=== PATIENT | female | born 1955 | race Caucasian/White ===

== ENCOUNTER 2016-08-21 19:51 | Inpatient (IN) | payer OTHER ==
[2016-08-21] MEDS ORDERED: Sodium Chloride 0.9% 1,000 ML IV ONE (20:31)
[2016-08-21] MEDS ORDERED: Sodium Chloride 0.9% 1,000 ML ONE (20:54)
[2016-08-21 20:55] LABS: BASO % 0.2 % (0.0-2.0); EOS % 0.3 % (0.0-4.0); HEMATOCRIT 37.8 % (34.0-47.0); LYMPH # 3.1 K/uL (1.0-4.3); LYMPH % 24.2 % (20.0-40.0); MEAN CELL VOLUME 92.7 fL (81.0-99.0); MEAN CORPUSCULAR HEMOGLOBIN 31.2 pg (27.0-31.0); MEAN CORPUSCULAR HGB CONC 33.6 g/dL (33.0-37.0); MEAN PLATELET VOLUME 7.8 fL (7.2-11.7); MONO # 1.3 K/uL (0.0-0.8); MONO % 10.2 % (0.0-10.0); RED CELL DISTRIBUTION WIDTH 13.1 % (11.5-14.5); WHITE BLOOD COUNT 12.8 K/uL (4.8-10.8)
[2016-08-21 21:04] LABS: INR 1.1
[2016-08-21 21:07] LABS: CHLORIDE 95 mmol/L (98-107); SODIUM 138 mmol/L (132-148)
[2016-08-21 21:08] LABS: POTASSIUM 4.1 mmol/L (3.6-5.2)
[2016-08-21 21:10] LABS: ALB/GLOB RATIO 1.2 (1.0-2.1); ALKALINE PHOSPHATASE 56 U/L (38-126); AST/SGOT 25 U/L (14-36); BILIRUBIN,TOTAL 0.5 mg/dL (0.2-1.3); BLOOD UREA NITROGEN 11 mg/dL (7-17); CARBON DIOXIDE 27 mmol/L (22-30); GFR AFRICAN-AMERICAN > 60; GLUCOSE,RANDOM 97 mg/dL (65-105); PHOSPHOROUS 4.3 mg/dL (2.5-4.5); TOTAL PROTEIN 8.3 g/dL (6.3-8.3)
[2016-08-21 21:11] LABS: ALT/SGPT 16 U/L (9-52); CALCIUM 8.8 mg/dl (8.6-10.4); MAGNESIUM 1.7 mg/dL (1.6-2.3)
[2016-08-21 21:11] LABS: VENOUS BLOOD GAS BASE EXCESS 3.9 mmol/L (0.0-2.0); VENOUS BLOOD GAS PCO2 42 mmHg (40-60); VENOUS BLOOD PH 7.44 (7.32-7.43)
[2016-08-21 21:13] LABS: URINE BACTERIA FEW (<OCC); URINE BILIRUBIN NEGATIVE (NEGATIVE); URINE BLOOD NEGATIVE (NEGATIVE); URINE COLOR Yellow (YELLOW); URINE GLUCOSE (UA) NORMAL (Normal); URINE KETONE NEGATIVE (NEGATIVE); URINE LEUKOCYTE ESTERASE TRACE Leu/uL (Negative); URINE PROTEIN NEGATIVE (NEGATIVE); URINE UROBILINOGEN NORMAL mg/dL (0.2-1.0); WBC URINE 10 /hpf (0-5)
[2016-08-21] MEDS ORDERED: Iohexol 240 (50 ml) PO STA (21:16)
[2016-08-21] MEDS ORDERED: Iodixanol 320 MG/ML 100 ML BOTTLE IV ONE (22:12)
[2016-08-21] MEDS ORDERED: Iohexol 240 (50 ml) ONE (22:21)
--- NOTE | 2016-08-22 00:08 | CT ---
EXAM: CT Abdomen and Pelvis With Intravenous Contrast CLINICAL HISTORY: 61 years old, female; Pain; Abdominal pain; Flank; Left lower quadrant (llq); Additional info: Lower abdominal pain, fever TECHNIQUE: Axial computed tomography images of the abdomen and pelvis with intravenous contrast. This CT exam was performed using one or more of the following dose reduction techniques: automated exposure control, adjustment of the mA and/or kV according to patient size, and/or use of iterative reconstruction technique. Coronal and sagittal reformatted images were created and reviewed. CONTRAST: 100 mL of visipaque 320 administered intravenously. COMPARISON: No relevant prior studies available. FINDINGS: Lower thorax: There is minimal bibasilar atelectasis. ABDOMEN: Liver: There are no focal liver lesions present. Gallbladder and bile ducts: There has been a cholecystectomy. No ductal dilation. Pancreas: The pancreas is normal. No ductal dilation. Spleen: The spleen is normal. Adrenals: The adrenal glands are normal. Kidneys and ureters: The kidneys are normal. No hydronephrosis. Stomach and bowel: At the sigmoid colon near series 3, images 144-148, there is an area of wall thickening with a question of slight pericolonic stranding. This could represent a mild acute diverticulitis. Underlying abnormality is not excluded. No evidence for perforation or abscess. Stomach is decompressed. Colonic constipation is present. There is no evidence of intestinal obstruction. Appendix: A normal appendix is identified. PELVIS: Bladder: Bladder is decompressed. Reproductive: The uterus is normal. ABDOMEN and PELVIS: Intraperitoneal space: There is small to moderate pelvic fluid. This is nonspecific. There is no free intraperitoneal air. Bones/joints: There are mild degenerative changes present. There is mild diffuse osteopenia. No acute fracture. No dislocation. Soft tissues: Unremarkable. Vasculature: The aorta demonstrates mild atherosclerotic calcification. No abdominal aortic aneurysm. Lymph nodes: There is no evidence of lymphadenopathy. IMPRESSION: 1. There is small to moderate pelvic fluid. This is nonspecific. 2. At the sigmoid colon near series 3, images 144-148, there is an area of wall thickening with a question of slight pericolonic stranding. This could represent a mild acute diverticulitis. Underlying abnormality is not excluded. No evidence for perforation or abscess.
--- NOTE | 2016-08-22 00:19 | C.PDOC ---
Time Seen by Provider: 08/21/16 20:07 Chief Complaint (Nursing): Abdominal Pain History Per: Patient Onset/Duration Of Symptoms: Days (few) Current Symptoms Are (Timing): Still Present Severity: Moderate Location Of Pain/Discomfort: LLQ, Suprapubic Associated Symptoms: Fever, Chills Exacerbating Factors: None Alleviating Factors: None Additional History Per: Prior Records Past Medical History Vital Signs: Last Vital Signs Temp 102.2 F H 08/21/16 19:55 Pulse 79 08/21/16 22:15 Resp 18 08/21/16 22:15 BP 107/56 L 08/21/16 22:15 Pulse Ox 95 08/21/16 22:15 - Medical History PMH: Asthma, Gall Bladder Disease, HTN, Hyperlipidemia Surgical History: Cholecystectomy Family History: States: Unknown Family Hx - Social History Hx Alcohol Use: No Hx Substance Use: No - Immunization History Hx Tetanus Toxoid Vaccination: No Hx Influenza Vaccination: Yes Hx Pneumococcal Vaccination: No Review Of Systems Except As Marked, All Systems Reviewed And Found Negative. Constitutional: Positive for: Fever, Malaise Cardiovascular: Negative for: Chest Pain Respiratory: Negative for: Cough, Shortness of Breath Gastrointestinal: Positive for: Abdominal Pain. Negative for: Vomiting, Diarrhea Genitourinary: Negative for: Dysuria Musculoskeletal: Negative for: Neck Pain, Back Pain Skin: Negative for: Rash Neurological: Negative for: Weakness, Numbness, Seizures, Altered Mental Status Physical Exam - Physical Exam Appears: Non-toxic, No Acute Distress Skin: Normal Color, Warm, Dry, No Rash Head: Atraumatic, Normacephalic Eye(s): bilateral: PERRL, EOMI Neck: Normal ROM, Supple Cardiovascular: Rhythm Regular Respiratory: Normal Breath Sounds, No Accessory Muscle Use Gastrointestinal/Abdominal: Soft, Tenderness (LLQ) Back: No CVA Tenderness Extremity: Normal ROM Neurological/Psych: Oriented x3, Normal Motor, Normal Sensation ED Course And Treatment - Laboratory Results Result Diagrams: 08/21/16 20:48 08/21/16 20:48 ECG: Interpreted By Me, Viewed By Me ECG Rhythm: Sinus Rhythm ECG Interpretation: No Acute Changes Rate From EC O2 Sat by Pulse Oximetry: 95 Pulse Ox Interpretation: Normal - CT Scan/US CT abdomen/pelvis Other Rad Studies (CT/US): Read By Radiologist, Radiology Report Reviewed CT/US Interpretation: Acute diverticulitis. Progress - Interventions Interventions:: Observation, Intravenous fluid - Medications Administered Oral: Acetaminophen Intravenous: Antiemetic - Data Reviewed Data Reviewed: Lab, Diagnostic imaging, EKG, Old records - Patient Status Patient status: Partially improved - Continuity of Care Discussed patient case with:: Patient, Family-HIPPA compliant, ED Nurse, On- call PMD-pt unassigned - Patient Plan Patient Plan: Admission Disposition Discussed With DrTaylor: Milad Armstrong Jr. Comment: He accepted pt on his service. Doctor Will See Patient In The: Hospital - Disposition Disposition: HOSPITALIZED Disposition Time: 00:21 Condition: FAIR - Clinical Impression Clinical Impression: Fever, Acute diverticulitis, Abdominal pain
[2016-08-22] MEDS ORDERED: metroNIDAZOLE IV 500 mg/100 ml 100 ML IVPB STA (00:22)
[2016-08-22] MEDS ORDERED: Ciprofloxacin 400mg/200ml D5W 200 ML IVPB STA (00:22)
[2016-08-22] MEDS ORDERED: metroNIDAZOLE IV 500 mg/100 ml 100 ML ONE (01:03)
[2016-08-22] MEDS ORDERED: Ciprofloxacin 400mg/200ml D5W 200 ML IVPB ONE (01:27)
[2016-08-22] MEDS ORDERED: Ciprofloxacin 400mg/200ml D5W 200 ML IVPB SCH ×3 (01:30→14:00)
--- NOTE | 2016-08-22 02:00 | CP.PCM.HP ---
History of Present Illness - History of Present Illness History of Present Illness: Patient is a 61 year old female with past medical history of asthma and elevated cholesterol who presents to the ED with complaint of left lower quadrant abdominal pain that began two days ago. Patient states she has had pain similar before but not as intense. Patient states the pain is mostly localized to left lower quadrant but occasionally radiates to right side. Patient states she has had fever and chills at home as well as occasional headache. Patient admits to nausea but denies vomiting. Patient also admits to diarrhea and decreased appetite that began with the onset of the abdominal pain two days ago. Patient denies change in abdominal pain with motion. PMD: [place] PMHx: asthma, elevated cholesterol PSHx: cholecystectomy, Meds: ventolin inhaler, uses 1/ day on average, cholesterol medication (patient cannot remember name) FamHx: brother of cancer, mother with depression, father Social: denies alcohol, tobacco, drugs; unemployed Present on Admission - Present on Admission Any Indicators Present on Admission: No Review of Systems - Constitutional Constitutional: Chills, Fever, Weight Loss (5-10 pounds over the past year) - EENT Eyes: absent: Change in Vision Nose/Mouth/Throat: absent: Dry Mouth, Sore Throat - Cardiovascular Cardiovascular: absent: Chest Pain, Chest Pain at Rest, Dyspnea - Respiratory Respiratory: absent: Cough, Dyspnea - Gastrointestinal Gastrointestinal: Abdominal Pain, Constipation, Diarrhea, Nausea. absent: Vomiting - Genitourinary Genitourinary: absent: Difficulty Urinating, Dysuria - Integumentary Integumentary: absent: Dry Skin, Rash - Neurological Neurological: Headaches. absent: Dizziness, Weakness Past Patient History - Past Social History Smoking Status: Never Smoked - CARDIAC Hx Hypertension: Yes - PULMONARY Hx Asthma: Yes - GASTROINTESTINAL Hx Gall Bladder Disease: Yes - PSYCHIATRIC Hx Substance Use: No - SURGICAL HISTORY Hx Cholecystectomy: Yes - ANESTHESIA Hx Anesthesia: Yes Hx Anesthesia Reactions: No Meds Allergies/Adverse Reactions: Allergies Allergy/AdvReac Type Severity Reaction Status Date / Time No Known Allergies Allergy Verified 08/21/16 20:02 Physical Exam - Constitutional Appears: Non-toxic, No Acute Distress - Head Exam Head Exam: ATRAUMATIC, NORMOCEPHALIC - Eye Exam Eye Exam: EOMI - ENT Exam ENT Exam: Mucous Membranes Moist - Respiratory Exam Respiratory Exam: Clear to Auscultation Bilateral, NORMAL BREATHING PATTERN. absent: Wheezes - Cardiovascular Exam Cardiovascular Exam: +S1, +S2 - GI/Abdominal Exam GI & Abdominal Exam: Normal Bowel Sounds, Tenderness (left lower quadrant). absent: Distended, Guarding, Rebound, Rigid - Extremities Exam Extremities exam: Positive for: normal inspection. Negative for: pedal edema - Back Exam Back exam: absent: CVA tenderness (L), CVA tenderness (R) - Neurological Exam Neurological exam: Alert, Oriented x3 - Psychiatric Exam Psychiatric exam: Normal Affect - Skin Skin Exam: Dry, Normal Color, Warm Results - Vital Signs Recent Vital Signs: Last Vital Signs Temp 98.8 F 08/22/16 01:24 Pulse 66 08/22/16 01:24 Resp 18 08/22/16 01:24 BP 128/77 08/22/16 01:24 Pulse Ox 98 08/22/16 01:24 - Labs Result Diagrams: 08/21/16 20:48 08/21/16 20:48 Assessment & Plan (1) Acute diverticulitis Assessment and Plan: CT abdomen- mild acute diverticulitis without evidence of perforation or abscess Patient with prior CT in 11/2015: Extensive diverticulosis with findings suggestive of chronic constipation. No evidence of acute obstruction. Small amount of simple ascites in the pelvis. This may be physiologic. lactate 1.6 on VBG Cipro 400mg IV q12h Flagyl 500mg IV q8h solumedrol 40mg IV q8h follow up blood culture tylenol as needed for fever Status: Acute (2) Prophylactic measure Assessment and Plan: SCDs protonix 40mg PO daily Status: Acute
[2016-08-22] MEDS: MethylPREDNISolone 40 mg Vial IVP SCH ×4 (02:10→21:29)
[2016-08-22 02:27] VITALS: RESP 20
[2016-08-22] MEDS: metroNIDAZOLE IV 500 mg/100 ml 100 ML IVPB SCH ×3 (06:00→21:29)
[2016-08-22 07:23] LABS: BASO % 0.1 % (0.0-2.0); HEMATOCRIT 36.1 % (34.0-47.0); LYMPH # 0.8 K/uL (1.0-4.3); LYMPH % 8.8 % (20.0-40.0); MEAN CELL VOLUME 93.5 fL (81.0-99.0); MEAN CORPUSCULAR HEMOGLOBIN 31.5 pg (27.0-31.0); MEAN CORPUSCULAR HGB CONC 33.7 g/dL (33.0-37.0); MONO # 0.2 K/uL (0.0-0.8); MONO % 2.1 % (0.0-10.0); PLATELET COUNT 225 K/uL (130-400); RED CELL DISTRIBUTION WIDTH 12.9 % (11.5-14.5); WHITE BLOOD COUNT 9.7 K/uL (4.8-10.8)
[2016-08-22 07:29] LABS: CHLORIDE 99 mmol/L (98-107)
[2016-08-22 07:30] LABS: POTASSIUM 3.7 mmol/L (3.6-5.2); SODIUM 139 mmol/L (132-148)
[2016-08-22 07:32] LABS: ALB/GLOB RATIO 1.1 (1.0-2.1); ALKALINE PHOSPHATASE 54 U/L (38-126); ALT/SGPT 15 U/L (9-52); AST/SGOT 26 U/L (14-36); BILIRUBIN,TOTAL 0.7 mg/dL (0.2-1.3); BLOOD UREA NITROGEN 8 mg/dL (7-17); CARBON DIOXIDE 25 mmol/L (22-30); GFR AFRICAN-AMERICAN > 60; GLUCOSE,RANDOM 155 mg/dL (65-105); TOTAL PROTEIN 7.5 g/dL (6.3-8.3)
[2016-08-22 07:33] LABS: CALCIUM 8.4 mg/dl (8.6-10.4); MAGNESIUM 1.9 mg/dL (1.6-2.3); PHOSPHOROUS 2.4 mg/dL (2.5-4.5)
--- NOTE | 2016-08-22 08:42 | RAD ---
HISTORY: Fever COMPARISON: 09/24/2012 FINDINGS: LUNGS: No focal infiltrate or effusion. Upper lobe granulomatous changes. Nodular density at the left lung base likely represents nipple shadow. PLEURA: No significant pleural effusion identified, no pneumothorax apparent. CARDIOVASCULAR: Normal. OSSEOUS STRUCTURES: No significant abnormalities. VISUALIZED UPPER ABDOMEN: Surgical clips in the upper abdomen. OTHER FINDINGS: None. IMPRESSION: No focal infiltrate or effusion. Upper lobe granulomatous changes. Nodular density at the left lung base likely represents nipple shadow.
[2016-08-22 08:50] LABS: NEUTROPHIL 88 % (50-75); TOTAL CELLS COUNTED 100
[2016-08-22 08:51] LABS: LARGE PLATELETS PRESENT
[2016-08-22] MEDS: Enoxaparin 40 mg Syringe SC SCH (09:56)
[2016-08-22] MEDS: Pantoprazole 40 mg EC Tab PO SCH (09:56)
--- NOTE | 2016-08-22 11:40 | CARD ---
APPROVED REPORT EKG Measurement Heart [id number] <Conclusion> Normal sinus rhythm Normal ECG
[2016-08-22] MEDS: Ciprofloxacin 400mg/200ml D5W 200 ML IVPB SCH (12:17)
--- NOTE | 2016-08-22 14:01 | CP.PCM.PN ---
<Brayden Carrasco - Last Filed: 08/22/16 14:02> Subjective - Date & Time of Evaluation Date of Evaluation: 08/22/16 Time of Evaluation: 08:00 - Subjective Subjective: PGY-1 Medicine Progress Note for Dr. Armstrong Patient seen and examined at bedside. No acute event overnight. Patient still complaining of lower left quadrant abdominal pain. She stated that is has improved slightly. Patietn stated she was hungry and was given CLD. She is tolerating diet. Patient has no other acute complaint. Denied fever/chills, cp, sob, palpitations, n/v/d, incontinence. Objective - Vital Signs/Intake and Output Vital Signs (last 24 hours): Temp Pulse Resp BP Pulse Ox 98.1 F 78 20 101/65 78 L 08/22/16 08:00 08/22/16 11:29 08/22/16 08:00 08/22/16 08:00 08/22/16 08:00 Intake and Output: 08/22/16 08/22/16 06:59 18:59 Intake Total 480 Balance 480 - Medications Medications: Current Medications Acetaminophen (Tylenol 325mg Tab) 650 mg PO Q6 PRN PRN Reason: Fever >100.4 F Enoxaparin Sodium (Lovenox) 40 mg SC DAILY [facility] Last Admin: 08/22/16 09:56 Dose: 40 mg Metronidazole (Flagyl) 100 mls @ 100 mls/hr IVPB Q8 [facility] Last Admin: 08/22/16 13:25 Dose: 100 mls/hr Ciprofloxacin (Cipro 400mg/200ml Dsw) 200 mls @ 133 mls/hr IVPB Q12H [facility] Last Admin: 08/22/16 12:17 Dose: 133 mls/hr Methylprednisolone (Solu-Medrol) 40 mg IVP Q8 [facility] Last Admin: 08/22/16 13:25 Dose: 40 mg Pantoprazole Sodium (Protonix Ec Tab) 40 mg PO DAILY [facility] Last Admin: 08/22/16 09:56 Dose: 40 mg Pneumococcal Polyvalent Vaccine (Pneumovax 23 Vaccine) 0.5 ml IM .ONCE ONE Stop: 08/24/16 10:01 - Labs Labs: 08/22/16 06:47 08/22/16 06:47 PT 12.5 SECONDS (9.7-12.2) H 08/21/16 20:48 INR 1.1 08/21/16 20:48 APTT 26 SECONDS (21-34) 08/21/16 20:48 - Constitutional Appears: No Acute Distress - Head Exam Head Exam: ATRAUMATIC, NORMOCEPHALIC - Eye Exam Eye Exam: EOMI, Normal appearance Pupil Exam: PERRL - ENT Exam ENT Exam: Mucous Membranes Moist - Respiratory Exam Respiratory Exam: Clear to Ausculation Bilateral, NORMAL BREATHING PATTERN - Cardiovascular Exam Cardiovascular Exam: REGULAR RHYTHM, +S1, +S2 - GI/Abdominal Exam GI & Abdominal Exam: Soft, Tenderness (LLQ), Normal Bowel Sounds. absent: Distended, Firm, Guarding, Rebound - Extremities Exam Extremities Exam: Normal Capillary Refill. absent: Calf Tenderness - Back Exam Back Exam: absent: CVA tenderness (L), CVA tenderness (R) - Neurological Exam Neurological Exam: Alert, Awake, CN II-XII Intact, Oriented x3 - Psychiatric Exam Psychiatric exam: Normal Affect, Normal Mood - Skin Skin Exam: Dry, Intact, Normal Color, Warm Assessment and Plan - Assessment and Plan (Free Text) Plan: (1) Acute diverticulitis Assessment and Plan: CT abdomen- mild acute diverticulitis without evidence of perforation or abscess Patient with prior CT in 11/2015: Extensive diverticulosis with findings suggestive of chronic constipation. No evidence of acute obstruction. Small amount of simple ascites in the pelvis. This may be physiologic. lactate 1.6 on VBG Cipro 400mg IV q12h Flagyl 500mg IV q8h solumedrol 40mg IV q8h follow up blood culture tylenol as needed for fever CLD (2) Prophylactic measure Assessment and Plan: SCDs protonix 40mg PO daily Lovenox 40 mg SC daily <Milad Armstrong Jr. - Last Filed: 08/25/16 16:44> Objective - Vital Signs/Intake and Output Vital Signs (last 24 hours): Temp Pulse Resp BP Pulse Ox 98.3 F 90 20 127/67 97 08/23/16 15:05 08/23/16 15:05 08/23/16 15:05 08/23/16 15:05 08/23/16 15:05 - Labs Labs: 08/23/16 11:13 08/23/16 11:13 PT 12.5 SECONDS (9.7-12.2) H 08/21/16 20:48 INR 1.1 08/21/16 20:48 APTT 26 SECONDS (21-34) 08/21/16 20:48 Attending/Attestation - Attestation I have personally seen and examined this patient.: Yes I have fully participated in the care of the patient.: Yes I have reviewed all pertinent clinical information, including history, physical exam and plan: Yes Notes (Text): 08/25/16 16:43 Patient seen and examined. Review resident note and findings. Agree with findings and plan of care
[2016-08-23] MEDS: Ciprofloxacin 400mg/200ml D5W 200 ML IVPB SCH ×2 (00:52→13:31)
[2016-08-23] MEDS: metroNIDAZOLE IV 500 mg/100 ml 100 ML IVPB SCH ×2 (05:54→13:30)
[2016-08-23] MEDS: MethylPREDNISolone 40 mg Vial IVP SCH ×2 (05:55→13:31)
[2016-08-23] MEDS: Pantoprazole 40 mg EC Tab PO SCH (09:09)
[2016-08-23] MEDS: Enoxaparin 40 mg Syringe SC SCH (09:09)
--- NOTE | 2016-08-23 10:05 | CP.PCM.PN ---
<LunaBrayden - Last Filed: 08/23/16 16:38> Subjective - Date & Time of Evaluation Date of Evaluation: 08/23/16 Time of Evaluation: 07:30 - Subjective Subjective: PGY-1 Medicine Progress Note for Dr. Armstrong Patient seen and examined at bedside. No acute event overnight. Patient stated lower left quadrant abdominal pain has imporved and is minimal. She is tolerating diet and having loose stools. Patient has no other acute complaint. Denied fever/chills, cp, sob, palpitations, n/v/d, incontinence. Objective - Vital Signs/Intake and Output Vital Signs (last 24 hours): Temp Pulse Resp BP Pulse Ox 99.0 F 86 20 120/71 95 08/23/16 07:50 08/23/16 07:50 08/23/16 07:50 08/23/16 07:50 08/23/16 07:50 Intake and Output: 08/23/16 08/23/16 06:59 18:59 Intake Total 940 Balance 940 - Medications Medications: Current Medications Acetaminophen (Tylenol 325mg Tab) 650 mg PO Q6 PRN PRN Reason: Fever >100.4 F Enoxaparin Sodium (Lovenox) 40 mg SC DAILY [facility] Last Admin: 08/23/16 09:09 Dose: 40 mg Metronidazole (Flagyl) 100 mls @ 100 mls/hr IVPB Q8 [facility] Last Admin: 08/23/16 05:54 Dose: 100 mls/hr Ciprofloxacin (Cipro 400mg/200ml Dsw) 200 mls @ 133 mls/hr IVPB Q12H [facility] Last Admin: 08/23/16 00:52 Dose: 133 mls/hr Methylprednisolone (Solu-Medrol) 40 mg IVP Q8 [facility] Last Admin: 08/23/16 05:55 Dose: 40 mg Pantoprazole Sodium (Protonix Ec Tab) 40 mg PO DAILY [facility] Last Admin: 08/23/16 09:09 Dose: 40 mg Pneumococcal Polyvalent Vaccine (Pneumovax 23 Vaccine) 0.5 ml IM .ONCE ONE Stop: 08/24/16 10:01 - Labs Labs: 08/22/16 06:47 08/22/16 06:47 PT 12.5 SECONDS (9.7-12.2) H 08/21/16 20:48 INR 1.1 08/21/16 20:48 APTT 26 SECONDS (21-34) 08/21/16 20:48 - Constitutional Appears: No Acute Distress - Head Exam Head Exam: ATRAUMATIC, NORMOCEPHALIC - Eye Exam Eye Exam: EOMI, Normal appearance Pupil Exam: PERRL - ENT Exam ENT Exam: Mucous Membranes Moist - Neck Exam Neck Exam: Normal Inspection - Respiratory Exam Respiratory Exam: Clear to Ausculation Bilateral, NORMAL BREATHING PATTERN - Cardiovascular Exam Cardiovascular Exam: REGULAR RHYTHM, +S1, +S2 - GI/Abdominal Exam GI & Abdominal Exam: Soft, Normal Bowel Sounds. absent: Distended, Firm, Guarding, Rigid, Tenderness, Rebound - Extremities Exam Extremities Exam: Normal Capillary Refill. absent: Calf Tenderness, Pedal Edema - Back Exam Back Exam: absent: CVA tenderness (L), CVA tenderness (R) - Neurological Exam Neurological Exam: Alert, Awake, CN II-XII Intact, Oriented x3 - Psychiatric Exam Psychiatric exam: Normal Affect, Normal Mood - Skin Skin Exam: Dry, Intact, Normal Color, Warm Assessment and Plan - Assessment and Plan (Free Text) Plan: (1) Acute diverticulitis Assessment and Plan: CT abdomen- mild acute diverticulitis without evidence of perforation or abscess Patient with prior CT in 11/2015: Extensive diverticulosis with findings suggestive of chronic constipation. No evidence of acute obstruction. Small amount of simple ascites in the pelvis. This may be physiologic. lactate 1.6 on VBG Cipro 400mg IV q12h Flagyl 500mg IV q8h solumedrol 40mg IV q8h follow up blood culture tylenol as needed for fever CLD (2) Prophylactic measure Assessment and Plan: SCDs protonix 40 mg PO daily Lovenox 40 mg SC daily <Milad Armstrong Jr. - Last Filed: 08/25/16 16:51> Objective - Vital Signs/Intake and Output Vital Signs (last 24 hours): Temp Pulse Resp BP Pulse Ox 98.3 F 90 20 127/67 97 08/23/16 15:05 08/23/16 15:05 08/23/16 15:05 08/23/16 15:05 08/23/16 15:05 - Labs Labs: 08/23/16 11:13 08/23/16 11:13 PT 12.5 SECONDS (9.7-12.2) H 08/21/16 20:48 INR 1.1 08/21/16 20:48 APTT 26 SECONDS (21-34) 08/21/16 20:48 Attending/Attestation - Attestation I have personally seen and examined this patient.: Yes I have fully participated in the care of the patient.: Yes I have reviewed all pertinent clinical information, including history, physical exam and plan: Yes Notes (Text): 08/25/16 16:51 Patient seen and examined. Reviewed resident note and agree with findings and plan of care.
[2016-08-23 11:20] LABS: BASO % 0.1 % (0.0-2.0); HEMATOCRIT 33.7 % (34.0-47.0); LYMPH # 1.2 K/uL (1.0-4.3); LYMPH % 8.5 % (20.0-40.0); MEAN CELL VOLUME 93.4 fL (81.0-99.0); MEAN CORPUSCULAR HEMOGLOBIN 30.6 pg (27.0-31.0); MEAN CORPUSCULAR HGB CONC 32.7 g/dL (33.0-37.0); MEAN PLATELET VOLUME 8.3 fL (7.2-11.7); MONO # 0.8 K/uL (0.0-0.8); MONO % 5.6 % (0.0-10.0); PLATELET COUNT 217 K/uL (130-400); RED CELL DISTRIBUTION WIDTH 13.1 % (11.5-14.5); WHITE BLOOD COUNT 14.1 K/uL (4.8-10.8)
[2016-08-23 11:25] LABS: CHLORIDE 100 mmol/L (98-107)
[2016-08-23 11:26] LABS: POTASSIUM 4.1 mmol/L (3.6-5.2); SODIUM 140 mmol/L (132-148)
[2016-08-23 11:28] LABS: GFR AFRICAN-AMERICAN > 60
[2016-08-23 11:29] LABS: ALB/GLOB RATIO 1.1 (1.0-2.1); ALKALINE PHOSPHATASE 46 U/L (38-126); ALT/SGPT 10 U/L (9-52); AST/SGOT 20 U/L (14-36); BILIRUBIN,TOTAL 0.2 mg/dL (0.2-1.3); BLOOD UREA NITROGEN 12 mg/dL (7-17); CALCIUM 8.8 mg/dl (8.6-10.4); CARBON DIOXIDE 27 mmol/L (22-30); GLUCOSE,RANDOM 148 mg/dL (65-105); TOTAL PROTEIN 7.2 g/dL (6.3-8.3)
[2016-08-23 12:04] LABS: NEUTROPHIL 82 % (50-75); REACTIVE LYMPHOCYTES 2 % (0-0); TOTAL CELLS COUNTED 100
[2016-08-23 16:06] VITALS: BP 127/67; PULSE 90; TEMP 98.3; O2SAT 97
--- NOTE | 2016-08-23 16:37 | CP.PCM.DIS ---
Provider - Provider Date of Admission: 08/22/16 00:21 Attending physician: Milad Armstrong Jr, MD Time Spent in preparation of Discharge (in minutes): 45 Diagnosis - Discharge Diagnosis (1) Acute diverticulitis Status: Acute Comment: see hospital course Hospital Course - Lab Results Lab Results: Most Recent Lab Values WBC 14.1 K/uL (4.8-10.8) H 08/23/16 11:13 RBC 3.61 Mil/uL (3.80-5.20) L 08/23/16 11:13 Hgb 11.0 g/dL (11.0-16.0) 08/23/16 11:13 Hct 33.7 % (34.0-47.0) L 08/23/16 11:13 MCV 93.4 fL (81.0-99.0) 08/23/16 11:13 MCH 30.6 pg (27.0-31.0) 08/23/16 11:13 MCHC 32.7 g/dL (33.0-37.0) L 08/23/16 11:13 RDW 13.1 % (11.5-14.5) 08/23/16 11:13 Plt Count 217 K/uL (130-400) 08/23/16 11:13 MPV 8.3 fL (7.2-11.7) 08/23/16 11:13 Neut % (Auto) 85.8 % (50.0-75.0) H 08/23/16 11:13 Lymph % (Auto) 8.5 % (20.0-40.0) L 08/23/16 11:13 [place] % (Auto) 5.6 % (0.0-10.0) 08/23/16 11:13 Eos % (Auto) 0.0 % (0.0-4.0) 08/23/16 11:13 Baso % (Auto) 0.1 % (0.0-2.0) 08/23/16 11:13 Neut # 12.1 K/uL (1.8-7.0) H 08/23/16 11:13 Lymph # 1.2 K/uL (1.0-4.3) 08/23/16 11:13 [place] # 0.8 K/uL (0.0-0.8) 08/23/16 11:13 Eos # 0.0 K/uL (0.0-0.7) 08/23/16 11:13 Baso # 0.0 K/uL (0.0-0.2) 08/23/16 11:13 Neutrophils % (Manual) 82 % (50-75) H 08/23/16 11:13 Band Neutrophils % 2 % (0-2) 08/23/16 11:13 Lymphocytes % (Manual) 10 % (20-40) L 08/23/16 11:13 Reactive Lymphs % 2 % (0-0) H 08/23/16 11:13 Monocytes % (Manual) 4 % (0-10) 08/23/16 11:13 Platelet Estimate Normal (NORMAL) 08/23/16 11:13 Large Platelets Present 08/22/16 06:47 RBC Morphology Normal 08/22/16 06:47 Ovalocytes Slight 08/23/16 11:13 PT 12.5 SECONDS (9.7-12.2) H 08/21/16 20:48 INR 1.1 08/21/16 20:48 APTT 26 SECONDS (21-34) 08/21/16 20:48 pO2 50 mm/Hg (30-55) 08/21/16 21:00 VBG pH 7.44 (7.32-7.43) H 08/21/16 21:00 VBG pCO2 42 mmHg (40-60) 08/21/16 21:00 VBG HCO3 27.7 mmol/L 08/21/16 21:00 VBG Total CO2 29.8 mmol/L (22-28) H 08/21/16 21:00 VBG O2 Sat (Calc) 91.4 % (40-65) H 08/21/16 21:00 VBG Base Excess 3.9 mmol/L (0.0-2.0) H 08/21/16 21:00 VBG Potassium 4.0 mmol/L (3.6-5.2) 08/21/16 21:00 Sodium 139.0 mmol/l (132-148) 08/21/16 21:00 Chloride 106.0 mmol/L (98-107) 08/21/16 21:00 Glucose 92 mg/dl (65-105) 08/21/16 21:00 Lactate 1.6 mmol/L (0.7-2.1) 08/21/16 21:00 Sodium 140 mmol/L (132-148) 08/23/16 11:13 Potassium 4.1 mmol/L (3.6-5.2) 08/23/16 11:13 Chloride 100 mmol/L (98-107) 08/23/16 11:13 Carbon Dioxide 27 mmol/L (22-30) 08/23/16 11:13 Anion Gap 17 (10-20) 08/23/16 11:13 BUN 12 mg/dL (7-17) 08/23/16 11:13 Creatinine 0.5 MG/DL (0.7-1.2) L 08/23/16 11:13 Est GFR ( Amer) > 60 08/23/16 11:13 Est GFR (Non-Af Amer) > 60 08/23/16 11:13 Random Glucose 148 mg/dL (65-105) H 08/23/16 11:13 Calcium 8.8 mg/dl (8.6-10.4) 08/23/16 11:13 Phosphorus 2.4 mg/dL (2.5-4.5) L 08/22/16 06:47 Magnesium 1.9 mg/dL (1.6-2.3) 08/22/16 06:47 Total Bilirubin 0.2 mg/dL (0.2-1.3) 08/23/16 11:13 AST 20 U/L (14-36) 08/23/16 11:13 ALT 10 U/L (9-52) 08/23/16 11:13 Alkaline Phosphatase 46 U/L (38-126) 08/23/16 11:13 Total Protein 7.2 g/dL (6.3-8.3) 08/23/16 11:13 Albumin 3.7 g/dL (3.5-5.0) 08/23/16 11:13 Globulin 3.5 gm/dL (2.2-3.9) 08/23/16 11:13 Albumin/Globulin Ratio 1.1 (1.0-2.1) 08/23/16 11:13 Venous Blood Potassium 4.0 mmol/L (3.6-5.2) 08/21/16 21:00 Urine Color Yellow (YELLOW) 08/21/16 21:04 Urine Clarity Clear (Clear) 08/21/16 21:04 Urine pH 8.0 (5.0-8.0) 08/21/16 21:04 Ur Specific [place] 1.018 (1.003-1.030) 08/21/16 21:04 Urine Protein Negative mg/dL (NEGATIVE) 08/21/16 21:04 Urine Glucose (UA) Normal mg/dL (Normal) 08/21/16 21:04 Urine Ketones Negative mg/dL (NEGATIVE) 08/21/16 21:04 Urine Blood Negative (NEGATIVE) 08/21/16 21:04 Urine Nitrate Negative (NEGATIVE) 08/21/16 21:04 Urine Bilirubin Negative (NEGATIVE) 08/21/16 21:04 Urine Urobilinogen Normal mg/dL (0.2-1.0) 08/21/16 21:04 Ur Leukocyte Esterase Trace Delisa/uL (Negative) 08/21/16 21:04 Urine WBC (Auto) 10 /hpf (0-5) H 08/21/16 21:04 Ur Squamous Epith Cells 3 /hpf (0-5) 08/21/16 21:04 Urine Bacteria Few (<OCC) H 08/21/16 21:04 - Hospital Course Hospital Course: 61 year old female with past medical history of asthma and elevated cholesterol who presents to the ED with complaint of left lower quadrant abdominal pain that began two days ago. Patient states she has had pain similar before but not as intense. Patient states the pain is mostly localized to left lower quadrant but occasionally radiates to right side. Patient states she has had fever and chills at home as well as occasional headache. Patient admits to nausea but denies vomiting. Patient also admits to diarrhea and decreased appetite that began with the onset of the abdominal pain two days ago. Patient denies change in abdominal pain with motion. Patient was admitted for acute diverticulitis. CT abdomen/pelvis showed mild acute diverticulitis without evidence of perforation or abscess (see full report ). Patient was started on IV antibiotics, ciprofloxacin and flagyl. Solu-medrol was also ordered. Patient was given liquid diet. Patient pain was control with medication. Over the next two days, patient continued with iv antibiotics and steroids which she responded appropriately. On 08/23, patient was clinically improved and deemed medcially stable for discharge to home by Dr. Armstrong. Patient was discharged on Ciprofloxacin and Flagyl for 7 days along with a medrol dospak. Patient instructed to follow up with GI upon discharge. This is a summary of the hospital course. Please refer to EMR for more specific details. Discharge Exam - Head Exam Head Exam: ATRAUMATIC, NORMOCEPHALIC Discharge Plan - Discharge Medications Prescriptions: Ciprofloxacin [Cipro] 500 mg PO BID #14 tab Metronidazole [Flagyl] 500 mg PO Q8 #21 tab Methylprednisolone [Medrol Dose Pack (21 tabs)] See Taper PO DAILY #21 mg - Follow Up Plan Condition: STABLE Disposition: HOME/ ROUTINE Additional Instructions: Patient medically stable for discharge to home by Dr. Armstrong. Patient to take new medications Ciprofloxacin 500 mg by mouth twice per day, Medrol dospak as directed, and Flagyl 500 mg by mouth every 8 hours. Patient is to follow up with PMD (Dr. Armstrong), GI (Dr. Maurice/Yeni) within 1 week of discharge. Patient may resume physical activity as tolerated. Please return to ER if symptoms persist or condition worsens. All instructions stated above were discussed in detail with patient. She verbalized understanding and agreement. Referrals: Milad Armstrong Jr., MD [Medical Doctor] - Rafy Jaime MD [Staff Provider] - Ashwin Maurice MD [Staff Provider] -
[2016-08-23] MEDS ORDERED: Pneumococcal 23-Valent Vaccine IM ONE (17:15)
== END 2016-08-23 17:30 | disposition home or self-care (01) | DRG 183 ==
LOC: C.ER 19:51 → MERGE 08-22 00:21 → C.3T 08-22 00:21
PROVIDERS: ADMIT Internal Medicine; ATTEND Internal Medicine
DX: K57.32 Diverticulitis of large intestine without perforation or abscess without bleeding (principal); I10 Essential (primary) hypertension; J45.909 Unspecified asthma, uncomplicated; E78.00 Pure hypercholesterolemia, unspecified; E78.5 Hyperlipidemia, unspecified; Z90.49 Acquired absence of other specified parts of digestive tract

== ENCOUNTER 2016-09-09 20:38 | Inpatient (IN) | payer OTHER ==
[2016-09-09 20:38] VITALS: BMI 24.7
[2016-09-09 21:08] LABS: BASO % 0.3 % (0.0-2.0); EOS % 0.1 % (0.0-4.0); HEMATOCRIT 38.1 % (34.0-47.0); LYMPH # 2.9 K/uL (1.0-4.3); MEAN CELL VOLUME 94.2 fL (81.0-99.0); MEAN CORPUSCULAR HEMOGLOBIN 30.9 pg (27.0-31.0); MEAN CORPUSCULAR HGB CONC 32.8 g/dL (33.0-37.0); MEAN PLATELET VOLUME 7.6 fL (7.2-11.7); MONO # 0.9 K/uL (0.0-0.8); MONO % 8.5 % (0.0-10.0); WHITE BLOOD COUNT 11.1 K/uL (4.8-10.8)
[2016-09-09 21:16] LABS: CHLORIDE 102 mmol/L (98-107); SODIUM 140 mmol/L (132-148)
[2016-09-09 21:18] LABS: GFR AFRICAN-AMERICAN > 60
[2016-09-09 21:19] LABS: ALB/GLOB RATIO 1.1 (1.0-2.1); ALKALINE PHOSPHATASE 50 U/L (38-126); ALT/SGPT 17 U/L (9-52); AST/SGOT 18 U/L (14-36); BILIRUBIN,TOTAL 0.7 mg/dL (0.2-1.3); BLOOD UREA NITROGEN 8 mg/dL (7-17); CALCIUM 9.2 mg/dl (8.6-10.4); CARBON DIOXIDE 26 mmol/L (22-30); GLUCOSE,RANDOM 94 mg/dL (65-105); TOTAL PROTEIN 8.1 g/dL (6.3-8.3)
[2016-09-09] MEDS ORDERED: Iohexol 240 (50 ml) PO STA (21:35)
[2016-09-09] MEDS ORDERED: Sodium Chloride 0.9% 1,000 ML IV ONE (21:37)
[2016-09-09] MEDS ORDERED: Iohexol 240 (50 ml) ONE (21:39)
--- NOTE | 2016-09-09 21:43 | C.PDOC ---
History Of Present Illness 61 year old female presents to the ED with complaints of recurrent LLQ abdominal pain with fever. Patient states she was in the hospital last week and was admitted on August 21 for abdominal pain and was found to have acute mild diverticulitis. She was given IV antibiotics for 2-3 days and was discharged home and completed a course of Cipro and Flagyl and felt better before symptoms reappeared today. Patient denies any diarrhea, urinary symptoms, or vomiting. Time Seen by Provider: 09/09/16 21:10 Chief Complaint (Nursing): Abdominal Pain History Per: Patient History/Exam Limitations: no limitations Onset/Duration Of Symptoms: Hrs Current Symptoms Are (Timing): Still Present Location Of Pain/Discomfort: LLQ Quality Of Discomfort: "Pain" Associated Symptoms: Fever. denies: Vomiting Past Medical History Reviewed: Historical Data, Nursing Documentation, Vital Signs Vital Signs: Last Vital Signs Temp 99.3 F 09/09/16 22:47 Pulse 77 09/09/16 22:47 Resp 18 09/09/16 22:47 BP 134/73 09/09/16 22:47 Pulse Ox 99 09/09/16 22:47 - Medical History PMH: Asthma, Diverticulitis, Gall Bladder Disease, HTN, Hypercholesterolemia, Hyperlipidemia Surgical History: Cholecystectomy - [facility] COLONOSCOPY (01/07/13) Family History: States: Unknown Family Hx - Social History Hx Tobacco Use: No Hx Alcohol Use: No Hx Substance Use: No - Immunization History Hx Tetanus Toxoid Vaccination: No Hx Influenza Vaccination: Yes Hx Pneumococcal Vaccination: No Review Of Systems Constitutional: Positive for: Fever. Negative for: Chills, Sweats Cardiovascular: Negative for: Chest Pain Respiratory: Negative for: Shortness of Breath Gastrointestinal: Positive for: Abdominal Pain (LLQ). Negative for: Vomiting, Diarrhea Genitourinary: Negative for: Dysuria, Hematuria Physical Exam - Physical Exam Appears: Non-toxic, No Acute Distress Skin: Warm, Dry Head: Normacephalic Eye(s): bilateral: Normal Inspection Oral Mucosa: Moist Neck: Supple Chest: Symmetrical, No Deformity Cardiovascular: Rhythm Regular Respiratory: No Rales, No Rhonchi, No Stridor, No Wheezing Gastrointestinal/Abdominal: Soft, Tenderness (tenderness to LLQ ), No Distention , Guarding, No Rebound Back: No CVA Tenderness Extremity: Normal ROM, No Tenderness Neurological/Psych: Oriented x3 ED Course And Treatment - Laboratory Results Result Diagrams: 09/09/16 20:59 09/09/16 20:59 Lab Interpretation: Abnormal (Elevated WBC 11.1 with left shift.) O2 Sat by Pulse Oximetry: 100 (room air ) - CT Scan/US CT scan abdomen and pelvis Other Rad Studies (CT/US): Read By Radiologist, Radiology Report Reviewed CT/US Interpretation: Impression: Wall thickening and pericolonic stranding at the sigmoid colon, compatible with acute diverticulitis. - Physician Consult Information Time Consulting Physician Contacted: 23:47 Physician Contacted: Milad Armstrong Jr. Outcome Of Conversation: Patient to be admitted for IV antibiotics. Disposition - Disposition Disposition: HOSPITALIZED Disposition Time: 23:47 Condition: STABLE - POA Present On Arrival: None - Clinical Impression Clinical Impression: Diverticulitis - Scribe Statement The provider has reviewed the documentation as recorded by the Scribe Audrey Esquivel All medical record entries made by the Steveibkellie were at my direction and personally dictated by me. I have reviewed the chart and agree that the record accurately reflects my personal performance of the history, physical exam, medical decision making, and the department course for this patient. I have also personally directed, reviewed, and agree with the discharge instructions and disposition.
[2016-09-09] MEDS ORDERED: Iodixanol 320 MG/ML 100 ML BOTTLE IV ONE (22:25)
--- NOTE | 2016-09-09 23:24 | CT ---
EXAM: CT Abdomen and Pelvis With Intravenous Contrast CLINICAL HISTORY: 61 years old, female; Pain; Abdominal pain; Periumbilical; Additional info: Abd pain TECHNIQUE: Axial computed tomography images of the abdomen and pelvis with intravenous contrast. This CT exam was performed using one or more of the following dose reduction techniques: automated exposure control, adjustment of the mA and/or kV according to patient size, and/or use of iterative reconstruction technique. Coronal and sagittal reformatted images were created and reviewed. CONTRAST: 100 mL of [id number] administered intravenously. COMPARISON: CT - ABD PELVIS W/O PO OR IV CONT 06/14/2015 12:12:43 PM FINDINGS: Lower thorax: There is minimal bibasilar atelectasis. ABDOMEN: Liver: There are no focal liver lesions present. Gallbladder and bile ducts: There has been a cholecystectomy. No ductal dilation. Pancreas: The pancreas is normal. No ductal dilation. Spleen: The spleen is normal. Adrenals: The adrenal glands are normal. Kidneys and ureters: The kidneys are normal. No hydronephrosis. Stomach and bowel: At the sigmoid colon there is wall thickening and pericolonic stranding compatible with acute diverticulitis. No evidence for perforation or abscess. Consider repeat imaging after appropriate therapy to ensure resolution and exclude underlying lesions. The stomach is normal. Colonic constipation is present. There is no evidence of intestinal obstruction. Appendix: A normal appendix is identified. PELVIS: Bladder: The bladder is normal. Reproductive: The uterus is normal. ABDOMEN and PELVIS: Intraperitoneal space: There is moderate pelvic ascites, nonspecific. There is no free intraperitoneal air. Bones/joints: There are mild degenerative changes present. There is mild diffuse osteopenia. No acute fracture. No dislocation. Soft tissues: Unremarkable. Vasculature: The aorta demonstrates mild atherosclerotic calcification. No abdominal aortic aneurysm. Lymph nodes: There is no evidence of lymphadenopathy. IMPRESSION: At the sigmoid colon there is wall thickening and pericolonic stranding compatible with acute diverticulitis. No evidence for perforation or abscess. Consider repeat imaging after appropriate therapy to ensure resolution and exclude underlying lesions.
--- NOTE | 2016-09-10 00:31 | CP.PCM.HP ---
History of Present Illness - History of Present Illness History of Present Illness: CC: Abdominal pain 61 year old female with past medical history of asthma and HLD who presents to the ED with complaint of left lower quadrant abdominal pain that began earlier today. Patient states she has had similar pain on last admission for diverticulitis on 08/21/16. Patient stated that pain started suddenly and has gotten progressively worse. Patient recognized that the infection came back so she decided to come in. She rated the pain as 8/10 in severity. She described the pain as constant and sharp, localized to left lower quadrant with radiation to RLQ. Movement and palpation exacerbates her pain while nothing she noticed alleviates it. Admits to subjective fever and chills, headache, nausea, diarrhea and decreased appetite. Denies cp, sob, vomiting, constipation , incontinence, numbness/tingling. PMD: Dr. Kendrick PMH: asthma, HLD, HTN Meds: ventolin inhaler (uses once per day), Pravastatin 40 mg PO HS, Atenolol 50 mg PO daily Allergy: NKDA PSH: cholecystectomy, Hosp: diverticulitis on 08/21/16 FH: brother of cancer, mother with depression, father Social: denies alcohol/tobacco/drugs, patient is unemployed Present on Admission - Present on Admission Any Indicators Present on Admission: No History of DVT/PE: No History of Uncontrolled Diabetes: No Urinary Catheter: No Decubitus Ulcer Present: No Review of Systems - Constitutional Constitutional: Chills, Fever, Headache - EENT Eyes: absent: Blurred Vision, Change in Vision Ears: absent: Disequilibrium, Dizziness Nose/Mouth/Throat: absent: Nose Pain - Breasts Breasts: absent: Mass - Cardiovascular Cardiovascular: absent: Acrocyanosis, Chest Pain, Chest Pain at Rest, Chest Pain with Activity, Claudication, Dyspnea, Dyspnea on Exertion, Lightheadedness , Palpitations, Syncope - Respiratory Respiratory: absent: Cough, Dyspnea, Hemoptysis, Wheezing, Chest Congestion - Gastrointestinal Gastrointestinal: Abdominal Pain, Nausea. absent: Bloating, Diarrhea, Hematemesis, Vomiting - Genitourinary Genitourinary: absent: Change in Urinary Stream, Difficulty Urinating, Dysuria, Urinary Incontinence - Musculoskeletal Musculoskeletal: absent: Arthralgias, Atrophy, Back Pain, Muscle Weakness, Neck Pain, Numbness, Stiffness, Tingling - Integumentary Integumentary: absent: Bleeding Lesions, Change in Hair, Changing Lesions, New Lesions - Neurological Neurological: absent: Disequilibrium, Dizziness, Focal Weakness, Headaches, Lack of Coordination, Syncope, Tingling, Tremor, Vertigo - Psychiatric Psychiatric: absent: Anxiety, Homicidal Ideation, Suicidal Ideation - Endocrine Endocrine: absent: Fatigue, Palpitations, Polydipsia, Polyphagia, Polyuria - Hematologic/Lymphatic Hematologic: absent: Easy Bleeding, Easy Bruising, Lymphadenopathy Past Patient History - Infectious Disease Hx of Infectious Diseases: None - Past Social History Smoking Status: Never Smoked - CARDIAC Hx Hypercholesterolemia: Yes Hx Hypertension: Yes - PULMONARY Hx Asthma: Yes - NEUROLOGICAL Hx Neurological Disorder: No - HEENT Hx HEENT Problems: No - RENAL Hx Chronic Kidney Disease: No - ENDOCRINE/METABOLIC Hx Endocrine Disorders: No - HEMATOLOGICAL/ONCOLOGICAL Hx Blood Disorders: No - INTEGUMENTARY Hx Dermatological Problems: No - MUSCULOSKELETAL/RHEUMATOLOGICAL Hx Musculoskeletal Disorders: No Hx Falls: No - GASTROINTESTINAL Hx Diverticulitis: Yes Hx Gall Bladder Disease: Yes - GENITOURINARY/GYNECOLOGICAL Hx Genitourinary Disorders: No - PSYCHIATRIC Hx Substance Use: No - SURGICAL HISTORY Hx Cholecystectomy: Yes - ANESTHESIA Hx Anesthesia: Yes Hx Anesthesia Reactions: No Meds Allergies/Adverse Reactions: Allergies Allergy/AdvReac Type Severity Reaction Status Date / Time No Known Allergies Allergy Verified 09/09/16 20:48 Physical Exam - Constitutional Appears: No Acute Distress - Head Exam Head Exam: ATRAUMATIC, NORMOCEPHALIC - Eye Exam Eye Exam: EOMI, Normal appearance Pupil Exam: PERRL - ENT Exam ENT Exam: Mucous Membranes Moist - Neck Exam Neck exam: Positive for: Normal Inspection - Respiratory Exam Respiratory Exam: Clear to Auscultation Bilateral, NORMAL BREATHING PATTERN - Cardiovascular Exam Cardiovascular Exam: REGULAR RHYTHM, +S1, +S2 - GI/Abdominal Exam GI & Abdominal Exam: Normal Bowel Sounds, Soft, Tenderness (LLQ). absent: Distended, Firm, Guarding, Rebound - Extremities Exam Extremities exam: Positive for: normal capillary refill, pedal pulses present. Negative for: calf tenderness - Back Exam Back exam: absent: CVA tenderness (L), CVA tenderness (R) - Neurological Exam Neurological exam: Alert, CN II-XII Intact, Oriented x3 - Psychiatric Exam Psychiatric exam: Normal Affect, Normal Mood - Skin Skin Exam: Dry, Intact, Normal Color, Warm Results - Vital Signs Recent Vital Signs: Last Vital Signs Temp 99.3 F 09/09/16 22:47 Pulse 77 09/09/16 22:47 Resp 18 09/09/16 22:47 BP 134/73 09/09/16 22:47 Pulse Ox 100 09/09/16 23:48 - Labs Result Diagrams: 09/09/16 20:59 09/09/16 20:59 Assessment & Plan - Assessment and Plan (Free Text) Plan: (1) Acute diverticulitis Assessment and Plan: Med/surg CT abd/pelvis: At the sigmoid colon there is wall thickening and pericolonic stranding compatible with acute diverticulitis. No evidence for perforation or abscess. Consider repeat imaging after appropriate therapy to ensure resolution and exclude underlying lesions (see full report) Ciprofloxacin 400 mg IVPB q12h Flagyl 500 mg IVPB q8h solumedrol 40 mg IVP q8h blood culture tylenol 650 mg PO Q6H PRN fever Morphine 2 mg IVP Q4H PRN severe pain NS 125 cc/hr f/u lactate, procalcitonin f/u daily labs (2) Prophylactic measure Assessment and Plan: SCDs protonix 40mg PO daily Lovenox 40 mg SC daily
[2016-09-10 00:32] LABS: URINE BACTERIA RARE (<OCC); URINE BILIRUBIN NEGATIVE (NEGATIVE); URINE COLOR Colorless (YELLOW); URINE GLUCOSE (UA) NORMAL (Normal); URINE KETONE NEGATIVE (NEGATIVE); URINE LEUKOCYTE ESTERASE TRACE Leu/uL (Negative); URINE PROTEIN NEGATIVE (NEGATIVE); URINE UROBILINOGEN NORMAL mg/dL (0.2-1.0); WBC URINE 4 /hpf (0-5)
[2016-09-10 00:33] LABS: URINE BLOOD NEGATIVE (NEGATIVE)
[2016-09-10 00:52] VITALS: RESP 20
[2016-09-10] MEDS: Ciprofloxacin 400mg/200ml D5W 400 MG/200 ML BAG IVPB SCH ×2 (02:12→13:50)
[2016-09-10] MEDS: Sodium Chloride 0.9% 1,000 ML IV SCH ×3 (02:14→16:20)
[2016-09-10] MEDS: metroNIDAZOLE IV 500 mg/100 ml 500 MG/100 ML BAG IVPB SCH ×3 (04:00→17:09)
[2016-09-10 07:50] LABS: BASO % 0.3 % (0.0-2.0); EOS % 0.4 % (0.0-4.0); HEMATOCRIT 32.2 % (34.0-47.0); LYMPH # 2.6 K/uL (1.0-4.3); LYMPH % 33.4 % (20.0-40.0); MEAN CELL VOLUME 93.4 fL (81.0-99.0); MEAN CORPUSCULAR HEMOGLOBIN 31.1 pg (27.0-31.0); MEAN CORPUSCULAR HGB CONC 33.3 g/dL (33.0-37.0); MEAN PLATELET VOLUME 7.5 fL (7.2-11.7); MONO # 0.8 K/uL (0.0-0.8); MONO % 10.3 % (0.0-10.0); WHITE BLOOD COUNT 7.6 K/uL (4.8-10.8)
[2016-09-10 08:01] LABS: CHLORIDE 105 mmol/L (98-107); POTASSIUM 3.8 mmol/L (3.6-5.2); SODIUM 140 mmol/L (132-148)
[2016-09-10 08:03] LABS: BILIRUBIN,TOTAL 0.8 mg/dL (0.2-1.3); CARBON DIOXIDE 24 mmol/L (22-30); GFR AFRICAN-AMERICAN > 60
[2016-09-10 08:04] LABS: ALKALINE PHOSPHATASE 38 U/L (38-126); ALT/SGPT 11 U/L (9-52); AST/SGOT 14 U/L (14-36); BLOOD UREA NITROGEN 7 mg/dL (7-17); CALCIUM 8.2 mg/dl (8.6-10.4); GLUCOSE,RANDOM 92 mg/dL (65-105); TOTAL PROTEIN 6.3 g/dL (6.3-8.3)
[2016-09-10] MEDS: MethylPREDNISolone 40 mg Vial IVP SCH ×3 (08:24→21:46)
--- NOTE | 2016-09-10 08:39 | CP.PCM.PN ---
<Shelia Peerz - Last Filed: 09/10/16 13:51> Subjective - Date & Time of Evaluation Date of Evaluation: 09/10/16 Time of Evaluation: 08:38 - Subjective Subjective: Patient seen and examined at bedside. Patient reports her abdominal pain is well controlled with pain medication and rates left lower quadrant pain as a 2/ 10. Patient denies fever, chills, nausea, vomiting, diarrhea, constipation, shortness of breath and chest pain. Objective - Vital Signs/Intake and Output Vital Signs (last 24 hours): Temp Pulse Resp BP Pulse Ox 98.5 F 73 20 98/58 L 98 09/10/16 07:46 09/10/16 07:46 09/10/16 07:46 09/10/16 07:46 09/10/16 07:46 Intake and Output: 09/10/16 09/10/16 06:59 18:59 Intake Total 500 Balance 500 - Medications Medications: Current Medications Acetaminophen (Tylenol 325mg Tab) 650 mg PO Q6 PRN PRN Reason: Fever >100.4 F Enoxaparin Sodium (Lovenox) 40 mg SC DAILY [facility] Ciprofloxacin (Cipro 400mg/200ml Dsw) 400 mg in 200 mls @ 133 mls/hr IVPB Q12H [facility] Last Admin: 09/10/16 02:12 Dose: 133 mls/hr Metronidazole (Flagyl) 500 mg in 100 mls @ 100 mls/hr IVPB Q8H [facility] Last Admin: 09/10/16 04:00 Dose: 100 mls/hr Sodium Chloride (Sodium Chloride 0.9%) 1,000 mls @ 125 mls/hr IV .Q8H [facility] Last Admin: 09/10/16 08:00 Dose: Not Given Methylprednisolone (Solu-Medrol) 40 mg IVP Q8 [facility] Last Admin: 09/10/16 08:24 Dose: 40 mg Morphine Sulfate (Morphine) 2 mg IVP Q4H PRN PRN Reason: Pain, severe (8-10) Pantoprazole Sodium (Protonix Ec Tab) 40 mg PO DAILY [facility] - Labs Labs: 09/10/16 07:44 09/10/16 07:44 - Constitutional Appears: Non-toxic, No Acute Distress - Head Exam Head Exam: ATRAUMATIC, NORMAL INSPECTION, NORMOCEPHALIC - Eye Exam Eye Exam: EOMI, Normal appearance - ENT Exam ENT Exam: Mucous Membranes Moist - Neck Exam Neck Exam: Normal Inspection - Respiratory Exam Respiratory Exam: Clear to Ausculation Bilateral, NORMAL BREATHING PATTERN. absent: Rales, Rhonchi, Wheezes - Cardiovascular Exam Cardiovascular Exam: +S1, +S2 - GI/Abdominal Exam GI & Abdominal Exam: Soft, Tenderness, Normal Bowel Sounds Additional comments: tenderness to palpation of left lower quadrant - Extremities Exam Extremities Exam: Normal Inspection. absent: Pedal Edema, Tenderness - Neurological Exam Neurological Exam: Alert, Awake, Oriented x3 - Psychiatric Exam Psychiatric exam: Normal Affect, Normal Mood - Skin Skin Exam: Intact, Normal Color, Warm Assessment and Plan - Assessment and Plan (Free Text) Assessment: (1) Acute diverticulitis Assessment and Plan: WBC 7.6, afebrile Flagyl 500 mg IVPB q8h Solumedrol 40 mg IVP q8h f/u blood culture Tylenol 650 mg PO Q6H PRN fever Morphine 2 mg IVP Q4H PRN severe pain NS 125 cc/hr lactate 1.5, procalcitonin <0.05 f/u daily labs CT abd/pelvis: At the sigmoid colon there is wall thickening and pericolonic stranding compatible with acute diverticulitis. No evidence for perforation or abscess. Consider repeat imaging after appropriate therapy to ensure resolution and exclude underlying lesions (see full report) (2) Asthma Currently well-controlled (3) Prophylactic measure Assessment and Plan: SCDs protonix 40mg PO daily Lovenox 40 mg SC daily (4) Dispo Patient to be discharged tomorrow <Milad Armstrong Jr. - Last Filed: 09/17/16 11:15> Objective - Vital Signs/Intake and Output Vital Signs (last 24 hours): Temp Pulse Resp BP Pulse Ox 98.2 F 88 20 121/66 95 09/11/16 08:00 09/11/16 08:00 09/11/16 08:00 09/11/16 08:00 09/11/16 08:00 - Labs Labs: 09/11/16 07:27 09/11/16 07:27 PT 14.1 SECONDS (9.7-12.2) H 09/11/16 07:27 INR 1.3 09/11/16 07:27 APTT 26 SECONDS (21-34) 09/11/16 07:27 Attending/Attestation - Attestation I have personally seen and examined this patient.: Yes I have fully participated in the care of the patient.: Yes I have reviewed all pertinent clinical information, including history, physical exam and plan: Yes Notes (Text): 09/17/16 11:15 Agree with resident note and findings
[2016-09-10] MEDS: Enoxaparin 40 mg Syringe SC SCH (11:21)
[2016-09-10] MEDS: Pantoprazole 40 mg EC Tab PO SCH (11:21)
[2016-09-10 23:59] VITALS: O2SAT 95
[2016-09-11] MEDS: Sodium Chloride 0.9% 1,000 ML IV SCH ×2 (01:23→11:55)
[2016-09-11] MEDS: metroNIDAZOLE IV 500 mg/100 ml 500 MG/100 ML BAG IVPB SCH ×2 (03:24→10:18)
[2016-09-11] MEDS: Ciprofloxacin 400mg/200ml D5W 400 MG/200 ML BAG IVPB SCH ×2 (03:24→13:15)
[2016-09-11] MEDS: MethylPREDNISolone 40 mg Vial IVP SCH ×2 (06:49→14:53)
[2016-09-11 07:40] LABS: HEMATOCRIT 31.8 % (34.0-47.0); LYMPH # 1.1 K/uL (1.0-4.3); LYMPH % 9.8 % (20.0-40.0); MEAN CELL VOLUME 94.2 fL (81.0-99.0); MEAN CORPUSCULAR HEMOGLOBIN 31.1 pg (27.0-31.0); MONO # 0.5 K/uL (0.0-0.8); MONO % 4.2 % (0.0-10.0); PLATELET COUNT 243 K/uL (130-400); RED CELL DISTRIBUTION WIDTH 12.9 % (11.5-14.5)
[2016-09-11 07:51] LABS: WHITE BLOOD COUNT 11.7 K/uL (4.8-10.8)
[2016-09-11 07:52] LABS: INR 1.3
[2016-09-11 07:53] LABS: CHLORIDE 108 mmol/L (98-107); POTASSIUM 3.9 mmol/L (3.6-5.2); SODIUM 142 mmol/L (132-148)
[2016-09-11 07:55] LABS: GFR AFRICAN-AMERICAN > 60
[2016-09-11 07:56] LABS: ALKALINE PHOSPHATASE 39 U/L (38-126); ALT/SGPT 17 U/L (9-52); AST/SGOT 13 U/L (14-36); BILIRUBIN,TOTAL 0.4 mg/dL (0.2-1.3); BLOOD UREA NITROGEN 5 mg/dL (7-17); CALCIUM 8.4 mg/dl (8.6-10.4); CARBON DIOXIDE 25 mmol/L (22-30); GLUCOSE,RANDOM 117 mg/dL (65-105); TOTAL PROTEIN 6.5 g/dL (6.3-8.3)
[2016-09-11 08:29] VITALS: BP 121/66; PULSE 88; TEMP 98.2
[2016-09-11 09:33] LABS: NEUTROPHIL 88 % (50-75); TOTAL CELLS COUNTED 100
[2016-09-11] MEDS: Enoxaparin 40 mg Syringe SC SCH (10:16)
[2016-09-11] MEDS: Pantoprazole 40 mg EC Tab PO SCH (10:16)
--- NOTE | 2016-09-11 10:51 | CP.PCM.DIS ---
Provider - Provider Date of Admission: 09/09/16 23:48 Attending physician: Milad Armstrong Jr, MD Time Spent in preparation of Discharge (in minutes): 45 Diagnosis - Discharge Diagnosis (1) Diverticulitis Status: Acute Comment: see hospital course (2) Abdominal pain Status: Acute Comment: see hospital course Hospital Course - Lab Results Lab Results: Micro Results 09/10/16 00:34 Blood Blood Culture - Preliminary NO GROWTH AFTER 24 HOURS 09/10/16 00:34 Blood Blood Culture - Preliminary NO GROWTH AFTER 24 HOURS Most Recent Lab Values WBC 11.7 K/uL (4.8-10.8) H D 09/11/16 07:27 RBC 3.38 Mil/uL (3.80-5.20) L 09/11/16 07:27 Hgb 10.5 g/dL (11.0-16.0) L 09/11/16 07:27 Hct 31.8 % (34.0-47.0) L 09/11/16 07:27 MCV 94.2 fL (81.0-99.0) 09/11/16 07:27 MCH 31.1 pg (27.0-31.0) H 09/11/16 07:27 MCHC 33.0 g/dL (33.0-37.0) 09/11/16 07:27 RDW 12.9 % (11.5-14.5) 09/11/16 07:27 Plt Count 243 K/uL (130-400) 09/11/16 07:27 MPV 8.0 fL (7.2-11.7) 09/11/16 07:27 Neut % (Auto) 86.0 % (50.0-75.0) H 09/11/16 07:27 Lymph % (Auto) 9.8 % (20.0-40.0) L 09/11/16 07:27 [place] % (Auto) 4.2 % (0.0-10.0) 09/11/16 07:27 Eos % (Auto) 0.0 % (0.0-4.0) 09/11/16 07:27 Baso % (Auto) 0.0 % (0.0-2.0) 09/11/16 07:27 Neut # 10.1 K/uL (1.8-7.0) H 09/11/16 07:27 Lymph # 1.1 K/uL (1.0-4.3) 09/11/16 07:27 [place] # 0.5 K/uL (0.0-0.8) 09/11/16 07:27 Eos # 0.0 K/uL (0.0-0.7) 09/11/16 07:27 Baso # 0.0 K/uL (0.0-0.2) 09/11/16 07:27 Neutrophils % (Manual) 88 % (50-75) H 09/11/16 07:27 Band Neutrophils % 2 % (0-2) 09/11/16 07:27 Lymphocytes % (Manual) 9 % (20-40) L 09/11/16 07:27 Monocytes % (Manual) 1 % (0-10) 09/11/16 07:27 Platelet Estimate Normal (NORMAL) 09/11/16 07:27 Hypochromasia (manual) Slight 09/11/16 07:27 Poikilocytosis (manual Slight 09/11/16 07:27 Anisocytosis (manual) Slight 09/11/16 07:27 PT 14.1 SECONDS (9.7-12.2) H 09/11/16 07:27 INR 1.3 09/11/16 07:27 APTT 26 SECONDS (21-34) 09/11/16 07:27 Sodium 142 mmol/L (132-148) 09/11/16 07:27 Potassium 3.9 mmol/L (3.6-5.2) 09/11/16 07:27 Chloride 108 mmol/L (98-107) H 09/11/16 07:27 Carbon Dioxide 25 mmol/L (22-30) 09/11/16 07:27 Anion Gap 14 (10-20) 09/11/16 07:27 BUN 5 mg/dL (7-17) L 09/11/16 07:27 Creatinine 0.5 MG/DL (0.7-1.2) L 09/11/16 07:27 Est GFR ( Amer) > 60 09/11/16 07:27 Est GFR (Non-Af Amer) > 60 09/11/16 07:27 Random Glucose 117 mg/dL (65-105) H 09/11/16 07:27 Lactic Acid 1.5 mmol/L (0.7-2.1) 09/10/16 02:03 Calcium 8.4 mg/dl (8.6-10.4) L 09/11/16 07:27 Total Bilirubin 0.4 mg/dL (0.2-1.3) 09/11/16 07:27 AST 13 U/L (14-36) L 09/11/16 07:27 ALT 17 U/L (9-52) 09/11/16 07:27 Alkaline Phosphatase 39 U/L (38-126) 09/11/16 07:27 Total Protein 6.5 g/dL (6.3-8.3) 09/11/16 07:27 Albumin 3.3 g/dL (3.5-5.0) L 09/11/16 07:27 Globulin 3.2 gm/dL (2.2-3.9) 09/11/16 07:27 Albumin/Globulin Ratio 1.0 (1.0-2.1) 09/11/16 07:27 Lipase 31 U/L (23-300) 09/09/16 20:59 Procalcitonin < 0.05 NG/ML (0.19-0.49) L 09/10/16 02:03 Urine Color Colorless (YELLOW) 09/10/16 00:33 Urine Clarity Clear (Clear) 09/10/16 00:33 Urine pH 7.0 (5.0-8.0) 09/10/16 00:33 Ur Specific [place] 1.012 (1.003-1.030) 09/10/16 00:33 Urine Protein Negative mg/dL (NEGATIVE) 09/10/16 00:33 Urine Glucose (UA) Normal mg/dL (Normal) 09/10/16 00:33 Urine Ketones Negative mg/dL (NEGATIVE) 09/10/16 00:33 Urine Blood Negative (NEGATIVE) 09/10/16 00:33 Urine Nitrate Negative (NEGATIVE) 09/10/16 00:33 Urine Bilirubin Negative (NEGATIVE) 09/10/16 00:33 Urine Urobilinogen Normal mg/dL (0.2-1.0) 09/10/16 00:33 Ur Leukocyte Esterase Trace Delisa/uL (Negative) 09/10/16 00:33 Urine WBC (Auto) 4 /hpf (0-5) 09/10/16 00:33 Ur Squamous Epith Cells 2 /hpf (0-5) 09/10/16 00:33 Urine Bacteria Rare (<OCC) 09/10/16 00:33 - Hospital Course Hospital Course: 61 year old female with past medical history of asthma and HLD who presents to the ED with complaint of left lower quadrant abdominal pain that began earlier today. Patient states she has had similar pain on last admission for diverticulitis on 08/21/16. Patient stated that pain started suddenly and has gotten progressively worse. Patient recognized that the infection came back so she decided to come in. She rated the pain as 8/10 in severity. She described the pain as constant and sharp, localized to left lower quadrant with radiation to RLQ. Movement and palpation exacerbates her pain while nothing she noticed alleviates it. Admits to subjective fever and chills, headache, nausea, diarrhea and decreased appetite. Denies cp, sob, vomiting, constipation , incontinence, numbness/tingling. Patient was admitted for acute diverticulitis. Patient as started on IV fluids and IV antibiotics. She was given liquid diet. She was also given iv steroids. Patient remained on medical management for 2 days. On 09/11, patient was deemed medically stable for dischagre to home by Dr. Armstrong. Patient was given Ciprofloxacin and Flagyl twice per day for 7 days. She was also given medrol dospak for steroid taper. This is a summary of the hospital course. Please refer to EMR for more specific details. Discharge Exam - Head Exam Head Exam: ATRAUMATIC, NORMAL INSPECTION, NORMOCEPHALIC - Eye Exam Eye Exam: EOMI, Normal appearance - ENT Exam ENT Exam: Mucous Membranes Moist - Respiratory Exam Respiratory Exam: Clear to PA & Lateral, NORMAL BREATHING PATTERN - Cardiovascular Exam Cardiovascular Exam: REGULAR RHYTHM, +S1, +S2 - GI/Abdominal Exam GI & Abdominal Exam: Normal Bowel Sounds, Soft, Tenderness (very mild to deep palpation). absent: Distended, Firm, Guarding, Rebound - Extremities Exam Extremities exam: normal capillary refill, pedal pulses present - Back Exam Back exam: absent: CVA tenderness (L), CVA tenderness (R) - Neurological Exam Neurological exam: Alert, Oriented x3 - Psychiatric Exam Psychiatric exam: Normal Affect, Normal Mood - Skin Skin Exam: Dry, Intact, Normal Color, Warm Discharge Plan - Discharge Medications Prescriptions: Ciprofloxacin [Cipro] 500 mg PO BID #14 tab Methylprednisolone [Medrol Dose Pack (21 tabs)] See Taper PO DAILY #21 mg Metronidazole [Flagyl] 500 mg PO BID #14 tablet - Follow Up Plan Condition: STABLE Disposition: HOME/ ROUTINE Additional Instructions: Patient medically stable for discharge to home by Dr. Armstrong. Patient to take new medications Ciprofloxacin 500 mg by mouth twice per day, Medrol dospak as directed, and Flagyl 500 mg by mouth every 8 hours. Patient is to follow up with PMD (Dr. Armstrong) within 1 week of discharge. Patient may resume physical activity as tolerated. Please return to ER if symptoms persist or condition worsens. All instructions stated above were discussed in detail with patient. She verbalized understanding and agreement. Referrals: Milad Armstrong Jr., MD [Medical Doctor] -
== END 2016-09-11 16:00 | disposition home or self-care (01) | DRG 183 ==
LOC: C.ER 20:38 → C.3T 23:48 → C.9E 23:48
PROVIDERS: ADMIT Internal Medicine; ATTEND Internal Medicine
DX: K57.92 Diverticulitis of intestine, part unspecified, without perforation or abscess without bleeding (principal); I10 Essential (primary) hypertension; J45.909 Unspecified asthma, uncomplicated; E78.5 Hyperlipidemia, unspecified; Z90.49 Acquired absence of other specified parts of digestive tract

== ENCOUNTER 2016-10-18 07:38 | Day surgery (SDC) | payer OTHER ==
[2016-10-18 08:30] VITALS: BMI 23.6
[2016-10-18 08:43] VITALS: TEMP 98.4
[2016-10-18] MEDS ORDERED: Lactated Ringer's 500 ML IV SCH (08:45)
[2016-10-18] MEDS ORDERED: Propofol 10 mg/ml Inj (20 ML) ONE (09:38)
[2016-10-18] MEDS ORDERED: Lidocaine Hydrochloride 5 ML INJ ONE (09:38)
[2016-10-18 11:03] VITALS: O2SAT 100
[2016-10-18 12:25] VITALS: BP 100/46; PULSE 62; RESP 13
== END 2016-10-18 11:46 | disposition home or self-care (01) ==
LOC: C.ENDO 07:38
PROVIDERS: ATTEND Internal Medicine Gastroenterology
DX: K57.90 Diverticulosis of intestine, part unspecified, without perforation or abscess without bleeding (principal); K64.8 Other hemorrhoids
CPT/HCPCS: 45378; J2704; J7120

== ENCOUNTER 2017-05-15 14:17 | Emergency (ER) | payer OTHER ==
[2017-05-15 14:18] VITALS: BMI 22.1
[2017-05-15 14:36] VITALS: O2SAT 96
[2017-05-15] MEDS ORDERED: DiphenhydrAMINE 50 mg/ml Inj IVP STA (15:55)
--- NOTE | 2017-05-15 16:14 | C.PDOC ---
History Of Present Illness 61 y/o female with history of diverticulitis presents to ED with complaints of headache, cough, abdominal pain and body aches for "few days" with associated subjective fever. Patient denies nausea, vomiting, diarrhea or any other complaints at this time. Patient is UTD with flu vaccine Time Seen by Provider: 05/15/17 15:49 Chief Complaint (Nursing): GI Problem History Per: Patient History/Exam Limitations: no limitations Onset/Duration Of Symptoms: Days Current Symptoms Are (Timing): Still Present Past Medical History Reviewed: Historical Data, Nursing Documentation, Vital Signs Vital Signs: Last Vital Signs Temp 99.4 F 05/15/17 18:54 Pulse 71 05/15/17 18:54 Resp 18 05/15/17 18:54 BP 97/63 L 05/15/17 18:54 Pulse Ox 96 05/16/17 07:35 - Medical History PMH: Anemia (IRON DEFICIENCY), Asthma, Diverticulitis, Gall Bladder Disease, HTN , Hypercholesterolemia, Hyperlipidemia Surgical History: Cholecystectomy - [facility] Procedures COLONOSCOPY (01/07/13) Family History: States: No Known Family Hx - Social History Hx Tobacco Use: No Hx Alcohol Use: No Hx Substance Use: No - Immunization History Hx Tetanus Toxoid Vaccination: No Hx Influenza Vaccination: Yes Hx Pneumococcal Vaccination: No Review Of Systems Constitutional: Positive for: Fever. Negative for: Chills Respiratory: Positive for: Cough Gastrointestinal: Positive for: Abdominal Pain. Negative for: Nausea, Vomiting Neurological: Positive for: Headache Physical Exam - Physical Exam Appears: Non-toxic, No Acute Distress Skin: Normal Color, Warm, Dry, No Rash Head: Atraumatic, Normacephalic Oral Mucosa: Moist Neck: Supple Cardiovascular: Rhythm Regular Respiratory: Normal Breath Sounds, No Rales, No Rhonchi, No Wheezing Gastrointestinal/Abdominal: Soft, Tenderness (LLQ ), No Guarding, No Rebound Back: No CVA Tenderness Extremity: Normal ROM, Capillary Refill (<2 seconds) ED Course And Treatment - Laboratory Results Result Diagrams: 05/15/17 16:30 05/15/17 16:30 O2 Sat by Pulse Oximetry: 96 (RA) Pulse Ox Interpretation: Normal Against Medical Advice - AMA Patient Left Against Medical Advice: The patient declines admission to the hospital and wishes to leave the Emergency Department. This action is against my medical advice. This decision was made with informed refusal. The patient was told that admission to the hospital is necessary. Explanation of the reasons why were discussed. The risks of leaving were explained to the patient and include, but are not limited to, worsening of known or currently unknown conditions, permanent disability and from undiagnosed or untreated conditions. The patient has the capacity to make this informed decision and understands my explanation of the current medical problem and risks of leaving. The patient voluntarily accepts these risks and signed an AMA form documenting our conversation. The patient was given the opportunity to ask questions and reconsider. The patient was encouraged to return to the Emergency Department at any time for further care. Medical Decision Making Medical Decision Making: ro influenza, diverticulitis, pneumonia- labs imagin gpenidng [address] of abd. advised of risk, of abscess, perforation. will treat emprically given extensive hx of diverticulitis, signs ama Disposition - Disposition Referrals: Leif Hernandes MD [Staff Provider] - [facility] [Outside] [facility] [Outside] [place] [facility] [Outside] Giacomo Marx MD [Staff Provider] - Disposition: HOME/ ROUTINE Disposition Time: 18:29 Condition: STABLE Additional Instructions: you are decling a ct scan of your abdomen. return to er with any worsening symptoms or concerns. Prescriptions: Ciprofloxacin HCl [Cipro] 500 mg PO BID #14 tab metroNIDAZOLE [Flagyl] 500 mg PO TID #21 tab Instructions: Acute Headache (ED), Acute Abdominal Pain (ED), Musculoskeletal Pain (ED) Forms: [employer] (Croatian) - Clinical Impression Clinical Impression: Abdominal pain, Headache - Scribe Statement The provider has reviewed the documentation as recorded by the Trinidad Pulliam All medical record entries made by the Steveibkellie were at my direction and personally dictated by me. I have reviewed the chart and agree that the record accurately reflects my personal performance of the history, physical exam, medical decision making, and the department course for this patient. I have also personally directed, reviewed, and agree with the discharge instructions and disposition.
[2017-05-15] MEDS ORDERED: DiphenhydrAMINE 50 mg/ml Inj ONE (16:24)
--- NOTE | 2017-05-15 16:34 | RAD ---
HISTORY: abd pain COMPARISON: Chest x-ray portion of abdominal series performed 07/02/12 TECHNIQUE: Chest, one view. FINDINGS: LUNGS: No focal consolidation. Please note that chest x-ray has limited sensitivity for the detection of pulmonary masses. PLEURA: No significant pleural effusion identified. No definite pneumothorax . CARDIOVASCULAR: Heart size appears within normal limits. OSSEOUS STRUCTURES: Degenerative changes of the spine. VISUALIZED UPPER ABDOMEN: Unremarkable. OTHER FINDINGS: None. IMPRESSION: No focal consolidation, significant pleural effusion, or definite pneumothorax identified.
[2017-05-15 16:41] LABS: BASO % 0.4 % (0.0-2.0); EOS % 0.3 % (0.0-4.0); HEMOGLOBIN 13.6 g/dL (11.0-16.0); INR 1.2; LYMPH # 2.2 K/uL (1.0-4.3); LYMPH % 32.2 % (20.0-40.0); MEAN CELL VOLUME 93.1 fL (81.0-99.0); MEAN CORPUSCULAR HEMOGLOBIN 31.9 pg (27.0-31.0); MEAN CORPUSCULAR HGB CONC 34.3 g/dL (33.0-37.0); MEAN PLATELET VOLUME 7.7 fL (7.2-11.7); MONO # 1.1 K/uL (0.0-0.8); MONO % 16.5 % (0.0-10.0); NEUT # 3.4 K/uL (1.8-7.0); NEUT % 50.6 % (50.0-75.0); PROTHROMBIN TIME 14.3 SECONDS (9.7-12.2); RBC 4.27 Mil/uL (3.80-5.20); WHITE BLOOD COUNT 6.7 K/uL (4.8-10.8)
[2017-05-15 16:57] LABS: ALBUMIN 4.3 g/dL (3.5-5.0); ALT/SGPT 19 U/L (9-52); AST/SGOT 23 U/L (14-36); BLOOD UREA NITROGEN 13 mg/dL (7-17); CALCIUM 8.6 mg/dl (8.6-10.4); GFR AFRICAN-AMERICAN > 60; GFR NON-AFRICAN AMERICAN > 60; LIPASE 23 U/L (23-300)
[2017-05-15 16:58] LABS: ALB/GLOB RATIO 1.1 (1.0-2.1)
[2017-05-15 18:32] LABS: SQUAMOUS EPITHIAL 2 /hpf (0-5); URINE BILIRUBIN NEGATIVE (NEGATIVE); URINE BLOOD 2+ (NEGATIVE); URINE CLARITY Clear (Clear); URINE GLUCOSE (UA) NORMAL (Normal); URINE LEUKOCYTE ESTERASE 2+ Leu/uL (Negative); URINE NITRATE NEGATIVE (NEGATIVE); URINE PROTEIN 1+ mg/dL (NEGATIVE)
[2017-05-15 18:33] LABS: URINE COLOR YELLOW (YELLOW)
[2017-05-15 18:54] VITALS: BP 97/63; PULSE 71; RESP 18; TEMP 99.4
== END 2017-05-15 19:16 | disposition home or self-care (01) ==
LOC: C.ER 14:17
DX: R10.32 Left lower quadrant pain (principal); R51 Headache
CPT/HCPCS: 71045; 80053; 81001; 83690; 85025; 85610; 85730; 87804; 96374; 96375; 99285; J1200; J2765

== ENCOUNTER 2017-07-04 15:58 | Emergency (ER) | payer OTHER ==
[2017-07-04 16:09] VITALS: BMI 23.9
[2017-07-04 16:12] VITALS: BP 131/81; PULSE 99; RESP 20; TEMP 98.9; O2SAT 96
--- NOTE | 2017-07-04 17:31 | C.PDOC ---
Time Seen by Provider: 07/04/17 17:24 Chief Complaint (Nursing): Abdominal Pain Past Medical History Vital Signs: Last Vital Signs Temp 98.9 F 07/04/17 16:08 Pulse 99 H 07/04/17 16:08 Resp 20 07/04/17 16:08 BP 131/81 07/04/17 16:08 Pulse Ox 96 07/04/17 16:08 - Medical History PMH: Anemia (IRON DEFICIENCY), Asthma, Diverticulitis, Gall Bladder Disease, HTN , Hypercholesterolemia, Hyperlipidemia Denies: Chronic Kidney Disease Surgical History: Cholecystectomy - [facility] Procedures COLONOSCOPY (01/07/13) Family History: States: Unknown Family Hx - Social History Hx Tobacco Use: No Hx Alcohol Use: No Hx Substance Use: No - Immunization History Hx Tetanus Toxoid Vaccination: No Hx Influenza Vaccination: Yes Hx Pneumococcal Vaccination: No ED Course And Treatment O2 Sat by Pulse Oximetry: 96 Medical Decision Making Medical Decision Making: ? early flu-like symptoms by hx normal exam now LOW susp of recurrent diverticulitis- pt w crampy lower abd discomfort for "months" Benign belly now. Disposition Doctor Will See Patient In The: Office Counseled Patient/Family Regarding: Studies Performed, Diagnosis - Disposition Disposition: HOME/ ROUTINE Disposition Time: 17:30 Condition: GOOD - Clinical Impression Clinical Impression: Headache, Pharyngitis
--- NOTE | 2017-07-04 17:37 | C.PDOC ---
History Of Present Illness 61 year old female presents to the ER with 1 day history of subjective fever, sore throat, and dry cough. Patient lives alone, no sick contacts. No recent travel. Patient also complaining of crampy lower abdominal pain, ongoing for months. Denies associated vomiting or diarrhea. PMD: Dr. Merced Kendrick Time Seen by Provider: 07/04/17 17:24 Chief Complaint (Nursing): Abdominal Pain History Per: Patient History/Exam Limitations: no limitations Onset/Duration Of Symptoms: Days (x1) Current Symptoms Are (Timing): Still Present Sick Contacts (Context): None Past Medical History Reviewed: Historical Data, Nursing Documentation, Vital Signs Vital Signs: Last Vital Signs Temp 98.9 F 07/04/17 16:08 Pulse 99 H 07/04/17 16:08 Resp 20 07/04/17 16:08 BP 131/81 07/04/17 16:08 Pulse Ox 96 07/04/17 17:37 - Medical History PMH: Anemia (IRON DEFICIENCY), Asthma, Diverticulitis, Gall Bladder Disease, HTN , Hypercholesterolemia, Hyperlipidemia Denies: Chronic Kidney Disease Surgical History: Cholecystectomy - [facility] Procedures COLONOSCOPY (01/07/13) Family History: States: Unknown Family Hx - Social History Hx Tobacco Use: No Hx Alcohol Use: No Hx Substance Use: No - Immunization History Hx Tetanus Toxoid Vaccination: No Hx Influenza Vaccination: Yes Hx Pneumococcal Vaccination: No Review Of Systems Except As Marked, All Systems Reviewed And Found Negative. Constitutional: Positive for: Fever ENT: Positive for: Throat Pain Cardiovascular: Negative for: Chest Pain Respiratory: Positive for: Cough. Negative for: Shortness of Breath, Sputum Gastrointestinal: Positive for: Abdominal Pain (cramping). Negative for: Vomiting, Diarrhea Physical Exam - Physical Exam Appears: Non-toxic, No Acute Distress Skin: Normal Color, Warm, Dry Head: Atraumatic, Normacephalic Eye(s): bilateral: Normal Inspection, PERRL, EOMI Nose: Normal Oral Mucosa: Moist Throat: Normal, No Erythema, No Exudate Neck: Normal ROM, Supple Chest: Symmetrical Cardiovascular: Rhythm Regular, No Murmur Respiratory: Normal Breath Sounds, No Accessory Muscle Use, No Rhonchi, No Wheezing Gastrointestinal/Abdominal: Normal Exam, Soft, No Tenderness, No Guarding, No Rebound Back: Normal Inspection, No CVA Tenderness, No Vertebral Tenderness Extremity: Bilateral: Atraumatic, Normal Color And Temperature, Normal ROM Neurological/Psych: Oriented x3, Normal Speech ED Course And Treatment O2 Sat by Pulse Oximetry: 96 (RA) Pulse Ox Interpretation: Normal Medical Decision Making Medical Decision Making: Clinical Impression: Questionable early flu-like symptoms by hx normal exam now LOW suspicion of recurrent diverticulitis- pt w crampy lower abd discomfort for "months" Benign belly now. Will treat empirically with tamiflu. Stable for d/c home. Disposition Doctor Will See Patient In The: Office Counseled Patient/Family Regarding: Studies Performed, Diagnosis - Disposition Referrals: Merced Kendrick MD [Medical Doctor] - Disposition: HOME/ ROUTINE Disposition Time: 17:37 Condition: GOOD Additional Instructions: sigue Tamiflu 75 mg dos veces al trip por 5 durant Sigue Ibuprofeno/tylenol para fiebre Sigue Dayquil/Nyquil angel luis necessario para sintomas del Flu. Sigue con Dr. Kendrick angel luis necessario. Prescriptions: Oseltamivir [Tamiflu] 75 mg PO BID #9 cap Instructions: Viral Pharyngitis, Headache, Adult Forms: [email or web address] (Thai) Print Language: GERMAN - POA Present On Arrival: None - Clinical Impression Clinical Impression: Headache, Pharyngitis - Scribe Statement The provider has reviewed the documentation as recorded by the Trinidad Juarez Provider Attestation: All medical record entries made by the Steveibkellie were at my direction and personally dictated by me. I have reviewed the chart and agree that the record accurately reflects my personal performance of the history, physical exam, medical decision making, and the department course for this patient. I have also personally directed, reviewed, and agree with the discharge instructions and disposition.
== END 2017-07-04 18:00 | disposition home or self-care (01) ==
LOC: C.ER 15:58
DX: J02.9 Acute pharyngitis, unspecified (principal); R51 Headache

== ENCOUNTER 2017-08-24 15:04 | Emergency (ER) | payer OTHER ==
[2017-08-24 15:18] VITALS: BMI 24.0
[2017-08-24 15:21] VITALS: TEMP 98.5
--- NOTE | 2017-08-24 16:20 | C.PDOC ---
History Of Present Illness 62 y/o female with history of asthma presents to ED with complaints of chest pain worse with cough for 4 days. Patient denies sob, nausea, vomiting, leg swelling, fever, chills or any other complaints at this time. Time Seen by Provider: 08/24/17 15:31 Chief Complaint (Nursing): Chest Pain History Per: Patient History/Exam Limitations: no limitations Onset/Duration Of Symptoms: Days Current Symptoms Are (Timing): Still Present Past Medical History Reviewed: Historical Data, Nursing Documentation, Vital Signs Vital Signs: Last Vital Signs Temp 98.5 F 08/24/17 18:39 Pulse 18 L 08/24/17 18:39 Resp 16 08/24/17 18:39 BP 134/80 08/24/17 18:39 Pulse Ox 96 08/24/17 18:39 - Medical History PMH: Anemia (IRON DEFICIENCY), Asthma, Diverticulitis, Gall Bladder Disease, HTN , Hypercholesterolemia, Hyperlipidemia Surgical History: Cholecystectomy - [facility] Procedures COLONOSCOPY (01/07/13) Family History: States: No Known Family Hx - Social History Hx Tobacco Use: No Hx Alcohol Use: No Hx Substance Use: No - Immunization History Hx Tetanus Toxoid Vaccination: No Hx Influenza Vaccination: Yes Hx Pneumococcal Vaccination: No Review Of Systems Constitutional: Negative for: Fever, Chills Cardiovascular: Positive for: Chest Pain Respiratory: Positive for: Cough. Negative for: Shortness of Breath Gastrointestinal: Negative for: Nausea, Vomiting Skin: Negative for: Rash Physical Exam - Physical Exam Appears: Non-toxic, No Acute Distress Skin: Normal Color, Warm, Dry, No Rash Head: Atraumatic, Normacephalic Eye(s): bilateral: Normal Inspection Oral Mucosa: Moist Neck: Normal ROM, Supple Cardiovascular: Rhythm Regular Respiratory: Normal Breath Sounds, No Rales, No Rhonchi, No Stridor, Wheezing ( scant expiratory ) Gastrointestinal/Abdominal: Soft, No Tenderness, No Guarding, No Rebound Back: Normal Inspection, No CVA Tenderness Extremity: Normal ROM, No Pedal Edema Neurological/Psych: Oriented x3, Normal Speech, Normal Cognition Gait: Steady ED Course And Treatment O2 Sat by Pulse Oximetry: 98 (RA) Pulse Ox Interpretation: Normal Medical Decision Making Medical Decision Making: Plan: CXR, Neb treatment ordered. Tylenol administered CXR: negative. On re-exam, the patient reports improvement of symptoms. Lungs are CTA. heart is RRR. abdomen is soft, non-tender and tolerating PO well. Ambulatory in the ED with steady gait. Patient was instructed to follow up with the medical doctor/clinic within 1-2 days. Return if worsened. Disposition - Disposition Referrals: Merced Kendrick MD [Medical Doctor] - Disposition: HOME/ ROUTINE Disposition Time: 18:14 Condition: GOOD Additional Instructions: follow up with the medical doctor/clinic within 1-2 days. Return if worsened. 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 - Scribe Statement The provider has reviewed the documentation as recorded by the Scribkellie Pulliam All medical record entries made by the Trinidad were at my direction and personally dictated by me. I have reviewed the chart and agree that the record accurately reflects my personal performance of the history, physical exam, medical decision making, and the department course for this patient. I have also personally directed, reviewed, and agree with the discharge instructions and disposition.
[2017-08-24] MEDS: Albuterol-Ipratrop 3 mg / 0.5 (3 ml) UD IH SCH ×3 (16:30→16:57)
--- NOTE | 2017-08-24 16:50 | RAD ---
HISTORY: cough, wheezing COMPARISON: Chest radiograph dated 05/15/2017. TECHNIQUE: Chest PA and lateral FINDINGS: LUNGS: No active pulmonary disease. PLEURA: No significant pleural effusion identified. No pneumothorax apparent. CARDIOVASCULAR: Normal. OSSEOUS STRUCTURES: Unchanged. VISUALIZED UPPER ABDOMEN: Right upper quadrant surgical clips. OTHER FINDINGS: None. IMPRESSION: No active disease.
[2017-08-24] MEDS ORDERED: Albuterol-Ipratrop 3 mg / 0.5 (3 ml) UD ONE (16:55)
[2017-08-24 18:42] VITALS: BP 134/80; PULSE 18; RESP 16
[2017-08-27 19:41] VITALS: O2SAT 98
--- NOTE | 2017-08-27 20:41 | CARD ---
APPROVED REPORT EKG Measurement Heart [id number] <Conclusion> Normal sinus rhythm Septal infarct, age undetermined Abnormal ECG
== END 2017-08-24 18:40 | disposition home or self-care (01) ==
LOC: C.ER 15:04
DX: J45.909 Unspecified asthma, uncomplicated (principal)

== ENCOUNTER 2017-11-10 17:33 | Emergency (ER) | payer OTHER ==
[2017-11-10 17:33] VITALS: BMI 24.0
[2017-11-10 17:44] VITALS: O2SAT 100
[2017-11-10] MEDS ORDERED: Sodium Chloride 0.9% 1,000 ML IV ONE (17:56)
[2017-11-10 18:11] LABS: BASO % 0.2 % (0.0-2.0); EOS # 0.1 K/uL (0.0-0.7); EOS % 1.3 % (0.0-4.0); HEMOGLOBIN 12.9 g/dL (11.0-16.0); LYMPH # 3.4 K/uL (1.0-4.3); LYMPH % 49.2 % (20.0-40.0); MEAN CELL VOLUME 93.8 fL (81.0-99.0); MEAN CORPUSCULAR HEMOGLOBIN 31.6 pg (27.0-31.0); MEAN CORPUSCULAR HGB CONC 33.7 g/dL (33.0-37.0); MEAN PLATELET VOLUME 7.4 fL (7.2-11.7); MONO % 13.7 % (0.0-10.0); NEUT # 2.5 K/uL (1.8-7.0); NEUT % 35.6 % (50.0-75.0); NRBC % 0.1 % (0.0-2.0); RBC 4.07 Mil/uL (3.80-5.20); RED CELL DISTRIBUTION WIDTH 12.6 % (11.5-14.5)
[2017-11-10 18:14] LABS: SQUAMOUS EPITHIAL 5 /hpf (0-5); URINE BACTERIA OCC (<OCC); URINE BILIRUBIN NEGATIVE (NEGATIVE); URINE BLOOD 2+ (NEGATIVE); URINE CLARITY Clear (Clear); URINE COLOR Yellow (YELLOW); URINE GLUCOSE (UA) NORMAL (Normal); URINE LEUKOCYTE ESTERASE 1+ Leu/uL (Negative); URINE PROTEIN NEGATIVE (NEGATIVE); URINE UROBILINOGEN NORMAL mg/dL (0.2-1.0)
[2017-11-10 18:22] LABS: ALB/GLOB RATIO 1.1 (1.0-2.1); ALBUMIN 4.1 g/dL (3.5-5.0); ALT/SGPT 19 U/L (9-52); AST/SGOT 22 U/L (14-36); BLOOD UREA NITROGEN 12 mg/dL (7-17); CALCIUM 9.1 mg/dl (8.6-10.4); GFR AFRICAN-AMERICAN > 60; GFR NON-AFRICAN AMERICAN > 60; LIPASE 27 U/L (23-300)
--- NOTE | 2017-11-10 18:59 | C.PDOC ---
History Of Present Illness 62 year old female presents to the ED c/o cramping abdominal pain mostly located to her LLQ. Patient reports she has a history of diverticulitis. Patient denies fever, chills, nausea, vomit, diarrhea, rash, back pain. Time Seen by Provider: 11/10/17 17:52 Chief Complaint (Nursing): Abdominal Pain History Per: Patient History/Exam Limitations: no limitations Onset/Duration Of Symptoms: Days Current Symptoms Are (Timing): Still Present Location Of Pain/Discomfort: LLQ Radiation Of Pain To:: None Quality Of Discomfort: Cramping, "Pain" Associated Symptoms: denies: Nausea, Vomiting, Diarrhea, Loss Of Appetite Exacerbating Factors: None Alleviating Factors: None Recent travel outside of the [place]: No Additional History Per: Patient Abnormal Vaginal Bleeding: No Past Medical History Reviewed: Historical Data, Nursing Documentation, Vital Signs Vital Signs: Last Vital Signs Temp 98.5 F 11/10/17 19:32 Pulse 78 11/10/17 19:32 Resp 16 11/10/17 19:32 BP 129/71 11/10/17 19:32 Pulse Ox 100 11/10/17 19:32 - Medical History PMH: Anemia (IRON DEFICIENCY), Asthma, Diverticulitis, Gall Bladder Disease, HTN , Hypercholesterolemia, Hyperlipidemia Denies: Chronic Kidney Disease Surgical History: Cholecystectomy - [facility] Procedures COLONOSCOPY (01/07/13) Family History: States: Unknown Family Hx - Social History Hx Tobacco Use: No Hx Alcohol Use: No Hx Substance Use: No - Immunization History Hx Tetanus Toxoid Vaccination: No Hx Influenza Vaccination: Yes Hx Pneumococcal Vaccination: No Review Of Systems Constitutional: Negative for: Fever, Chills Cardiovascular: Negative for: Chest Pain Respiratory: Negative for: Cough, Shortness of Breath Gastrointestinal: Positive for: Abdominal Pain. Negative for: Nausea, Vomiting Skin: Negative for: Rash Neurological: Negative for: Weakness, Numbness Physical Exam - Physical Exam Appears: Non-toxic, No Acute Distress, Other (anxious) Skin: Normal Color, Warm, Dry Head: Atraumatic, Normacephalic Eye(s): bilateral: Normal Inspection Oral Mucosa: Moist Neck: Normal ROM, Supple Chest: Symmetrical Cardiovascular: Rhythm Regular Respiratory: Normal Breath Sounds, No Rales, No Rhonchi, No Wheezing Gastrointestinal/Abdominal: Soft, Tenderness (mild LLQ), No Guarding, No Rebound , Other (dull to percussion. negatuve murphysm mcburneys) Extremity: Normal ROM, No Tenderness, No Swelling Neurological/Psych: Oriented x3, Normal Speech Gait: Steady ED Course And Treatment - Laboratory Results Result Diagrams: 11/10/17 18:08 11/10/17 18:08 Lab Interpretation: Normal (ua neg.) O2 Sat by Pulse Oximetry: 100 (ON RA) Pulse Ox Interpretation: Normal - Radiology CXR: Interpreted by Me CXR Interpretation: Yes: No Acute Disease - Other Rad abd x 2 X-Ray: Interpreted by Me (++ stool L colon) Reevaluation Time: 18:57 Reassessment Condition: Improved Medical Decision Making Medical Decision Making: constipation and NOT diverticulitis now many prior evals in ED for abd discomfort, usually normal w/u's Disposition Doctor Will See Patient In The: Office Counseled Patient/Family Regarding: Studies Performed, Diagnosis - Disposition Referrals: Merced Kendrick MD [Medical Doctor] - Disposition: HOME/ ROUTINE Disposition Time: 18:58 Condition: GOOD Additional Instructions: NO hay evidencia de Diverticulitis hoy. MUCHO estrenemiento Tanya un purgante ahora (julissa botella de Citr[employer] de Magnesio) y re-evalua odnis molestia del abdomen despues de usar el soledad 2-3 veces Julissa dieta mas saludable- 7 verduras y frutas crudas diarios. Sigue con donis medico angel luis necessario Instructions: Constipation, Adult (DC) Forms: [employer] (Thai) Print Language: TURKMEN - Clinical Impression Clinical Impression: Colicky LLQ abdominal pain - Scribe Statement The provider has reviewed the documentation as recorded by the Scribe Osei Nichols All medical record entries made by the Scribe were at my direction and personally dictated by me. I have reviewed the chart and agree that the record accurately reflects my personal performance of the history, physical exam, medical decision making, and the department course for this patient. I have also personally directed, reviewed, and agree with the discharge instructions and disposition.
[2017-11-10 19:34] VITALS: BP 129/71; PULSE 78; RESP 16; TEMP 98.5
--- NOTE | 2017-11-11 10:16 | RAD ---
PROCEDURE: Radiographs of the chest and abdomen (obstructive series) HISTORY: Abdominal pain COMPARISON: No prior. TECHNIQUE: AP radiograph of the chest, with upright and supine radiographs of the abdomen. FINDINGS: CHEST: Lungs: Clear. Cardiovascular: Normal size heart. No pulmonary vascular congestion. Pleura: No pleural fluid. No pneumothorax. Other findings: None. ABDOMEN AND PELVIS: There is a moderate amount of stool seen within the region the hepatic flexure transverse and descending colon consistent with fecal retention/ constipation. No evidence of acute mechanical bowel obstruction. Metallic clips right upper quadrant of the abdomen consistent prior cholecystectomy. No free air seen under the diaphragmatic surfaces. IMPRESSION: No acute cardiopulmonary disease. Findings consistent with constipation.
== END 2017-11-10 19:35 | disposition home or self-care (01) ==
LOC: C.ER 17:33
DX: R10.32 Left lower quadrant pain (principal); E78.00 Pure hypercholesterolemia, unspecified; I10 Essential (primary) hypertension
CPT/HCPCS: 74022; 80053; 81001; 83690; 85025; 96374; 99283; J1885; J7030

== ENCOUNTER 2018-02-20 13:16 | Emergency (ER) | payer OTHER ==
[2018-02-20 13:16] VITALS: BMI 24.0
[2018-02-20 13:36] VITALS: TEMP 98.8; O2SAT 100
--- NOTE | 2018-02-20 15:12 | C.PDOC ---
History Of Present Illness 62yo F PMH HTN, HLD, diverticulitis, depression, VitD deficiency c/o 2 weeks dizziness without syncope. She is constantly dizzy, worse when changing positions. She has had intermittent abdominal pain due to her diverticulosis. Currently c/o suprapubic pain 8/10 and headache 4/10. Has burning on urination and urinates 4+ times a day. Headache is described as a generalized pressure. Assoc with blurry vision, double vision. Denies n/v/c/d. Needs assistance while walking due to dizziness. No change in medication. <Sepideh Brown - Last Filed: 02/20/18 16:53> History Per: Patient History/Exam Limitations: no limitations Onset/Duration Of Symptoms: Persistent Associated Symptoms Preceding Syncopal Episode: Lightheadedness. denies: Worse With Standing, Vertigo, Vertigo Worse With Change In Head Position Possible Causative Factor(s): Vertigo. denies: Lightheaded W/Standing, Lightheaded W/Change In Head Position, Lightheaded W/Exertion <Sepideh Brown - Last Filed: 02/20/18 16:53> <Mega Collier DO - Last Filed: 02/20/18 19:04> Time Seen by Provider: 02/20/18 14:57 Chief Complaint (Nursing): Dizziness/Lightheaded Past Medical History Reviewed: Historical Data, Nursing Documentation, Vital Signs Vital Signs: Last Vital Signs Temp 98.8 F 02/20/18 13:33 Pulse 79 02/20/18 13:33 Resp 18 02/20/18 13:33 BP 121/72 02/20/18 13:33 Pulse Ox 100 02/20/18 13:33 - Medical History PMH: Anemia (IRON DEFICIENCY), Asthma, Diverticulitis, Gall Bladder Disease, HTN , Hypercholesterolemia, Hyperlipidemia Denies: Chronic Kidney Disease Surgical History: Cholecystectomy - [facility] Procedures COLONOSCOPY (01/07/13) Family History: States: Unknown Family Hx - Social History Hx Tobacco Use: No Hx Alcohol Use: No Hx Substance Use: No - Immunization History Hx Tetanus Toxoid Vaccination: Yes Hx Influenza Vaccination: Yes Hx Pneumococcal Vaccination: No <Sepideh Brown - Last Filed: 02/20/18 16:53> Vital Signs: Last Vital Signs Temp 98.8 F 02/20/18 13:33 Pulse 82 02/20/18 17:24 Resp 19 02/20/18 17:24 BP 117/71 02/20/18 17:24 Pulse Ox 100 02/20/18 17:24 - [facility] Procedures COLONOSCOPY (01/07/13) <Mega Collier DO - Last Filed: 02/20/18 19:04> Review Of Systems Except As Marked, All Systems Reviewed And Found Negative. Constitutional: Positive for: Chills, Weakness, Malaise. Negative for: Fever, Sweats, Weight loss Eyes: Positive for: Vision Change. Negative for: Conjunctivae Inflammation, Redness ENT: Negative for: Ear Pain, Ear Discharge Cardiovascular: Positive for: Light Headedness. Negative for: Chest Pain, Palpitations, Orthopnea Respiratory: Negative for: Cough, Shortness of Breath Gastrointestinal: Positive for: Abdominal Pain. Negative for: Nausea, Vomiting Genitourinary: Positive for: Dysuria, Frequency, Incontinence. Negative for: Hematuria Neurological: Positive for: Weakness, Numbness (L finger numbness), Dizziness. Negative for: Incoordination <Sepideh Brown - Last Filed: 02/20/18 16:53> Physical Exam - Physical Exam Appears: Non-toxic, No Acute Distress Skin: Normal Color, Dry Head: Atraumatic, Normacephalic Eye(s): bilateral: PERRL, EOMI Ear(s): Bilateral: Normal Nose: Normal Oral Mucosa: Moist Cardiovascular: Rhythm Regular, Rhythm Irregular, No Murmur Respiratory: Normal Breath Sounds Gastrointestinal/Abdominal: Bowel Sounds, Soft, Tenderness (suprapubic TTP), No Organomegaly, No Distention, No Guarding, No Rebound Back: CVA Tenderness Pulses: Left Radial: Normal, Right Radial: Normal, Left Dorsalis Pedis: Normal, Right Dorsalis Pedis: Normal DTR: Bicep (R): 2+, Bicep (L): 2+, Knee (R): 2+, Knee (L): 2+ Neurological/Psych: Oriented x3, Normal Speech, Normal Cognition, Normal Cranial Nerves <Sepideh Brown - Last Filed: 02/20/18 16:53> ED Course And Treatment - Laboratory Results Result Diagrams: 02/20/18 15:09 02/20/18 15:09 O2 Sat by Pulse Oximetry: 100 <Lor Brownberly Jignesh - Last Filed: 02/20/18 16:53> - Laboratory Results Result Diagrams: 02/20/18 15:09 02/20/18 15:09 <Mega Collier DO - Last Filed: 02/20/18 19:04> Medical Decision Making Medical Decision Making: EKG NSR CMP, Mg, P: P 5.2, otherwise unremarkable UA, urine Cx: 1+ LE, 2.0 urobili IVF hung, patient reports still feeling dizzy, but improved upon laying supine. Re eval: patient improving. will f/u with PMD: Dr. Kendrick. <BrownSepideh Jignesh - Last Filed: 02/20/18 16:53> Disposition - Disposition Disposition Time: 16:20 <Sepideh Brown Jignesh - Last Filed: 02/20/18 16:53> - Disposition Disposition Time: 16:00 <Mega Collier DO - Last Filed: 02/20/18 19:04> - Disposition Referrals: [facility] Amanda Coon, [Non-Staff] - Disposition: HOME/ ROUTINE Condition: IMPROVED Additional Instructions: PIYUSH SAMS, thank you for letting us take care of you today. The emergency medical care you received today was directed at your acute symptoms. If you were prescribed any medication, please fill it and take as directed. It may take several days for your symptoms to resolve. Return to the Emergency Department if your symptoms worsen, do not improve, or if you have any other problems. Please contact your doctor or call one of the physicians/clinics you have been referred to that are listed on the Patient Visit Information form that is included in your discharge packet. Bring any paperwork you were given at discharge with you along with any medications you are taking to your follow up visit. Our treatment cannot replace ongoing medical care by a primary care provider outside of the emergency department. Thank you for allowing the [facility] team to be part of your care today. Follow up with your primary care doctor in 3-4 days for re-evaluation and further management. Prescriptions: Ibuprofen [Motrin] 600 mg PO Q6 PRN #20 tab PRN Reason: Pain, Moderate (4-7) Meclizine [Meclizine*] 25 mg PO Q6 PRN #20 tab PRN Reason: Dizziness Sulfamethoxazole/Trimethoprim [Bactrim DS 800 mg-160 mg] 1 tab PO BID #10 tab Instructions: Urinary Tract Infection, Adult (DC), Vertigo (a Type of Dizziness) (DC) Forms: [employer] (Brazilian) - Clinical Impression Clinical Impression: Vertigo, Urinary tract infection - PA / POWER PLANT INSTALLER / Resident Statement MD/DO has reviewed & agrees with the documentation as recorded. MD/DO has examined the patient and agrees with the treatment plan. <Sepideh Brown - Last Filed: 02/20/18 16:53>
[2018-02-20] MEDS ORDERED: Sodium Chloride 0.9% 1,000 ML IV ONE (15:14)
[2018-02-20 15:16] LABS: BASO % 0.2 % (0.0-2.0); EOS # 0.1 K/uL (0.0-0.7); EOS % 0.8 % (0.0-4.0); HEMOGLOBIN 13.7 g/dL (11.0-16.0); LYMPH # 3.4 K/uL (1.0-4.3); MEAN CELL VOLUME 94.2 fL (81.0-99.0); MEAN CORPUSCULAR HEMOGLOBIN 31.6 pg (27.0-31.0); MEAN CORPUSCULAR HGB CONC 33.5 g/dL (33.0-37.0); MEAN PLATELET VOLUME 7.5 fL (7.2-11.7); MONO # 0.8 K/uL (0.0-0.8); MONO % 10.8 % (0.0-10.0); NEUT % 41.2 % (50.0-75.0); NRBC % 0.1 % (0.0-2.0); RBC 4.35 Mil/uL (3.80-5.20); RED CELL DISTRIBUTION WIDTH 13.1 % (11.5-14.5); WHITE BLOOD COUNT 7.2 K/uL (4.8-10.8)
[2018-02-20 15:29] LABS: ALB/GLOB RATIO 1.1 (1.0-2.1); ALBUMIN 4.5 g/dL (3.5-5.0); ALT/SGPT 17 U/L (9-52); AST/SGOT 23 U/L (14-36); BLOOD UREA NITROGEN 10 mg/dL (7-17); CALCIUM 9.6 mg/dl (8.6-10.4); GFR NON-AFRICAN AMERICAN > 60; SQUAMOUS EPITHIAL 6 /hpf (0-5); URINE BILIRUBIN NEGATIVE (NEGATIVE); URINE BLOOD 1+ (NEGATIVE); URINE CLARITY Hazy (Clear); URINE COLOR Yellow (YELLOW); URINE GLUCOSE (UA) NORMAL (Normal); URINE LEUKOCYTE ESTERASE 1+ Leu/uL (Negative); URINE PROTEIN NEGATIVE (NEGATIVE)
[2018-02-20] MEDS ORDERED: Sodium Chloride 0.9% 1,000 ML ONE (15:46)
[2018-02-20 17:25] VITALS: BP 117/71; PULSE 82; RESP 19
--- NOTE | 2018-02-22 14:54 | CARD ---
APPROVED REPORT Date of service: 02/20/2018 EKG Measurement Heart [id number] <Conclusion> Normal sinus rhythm Normal ECG
== END 2018-02-20 17:25 | disposition home or self-care (01) ==
LOC: C.ER 13:16
DX: R42 Dizziness and giddiness (principal); N39.0 Urinary tract infection, site not specified; I10 Essential (primary) hypertension; E78.00 Pure hypercholesterolemia, unspecified; D64.9 Anemia, unspecified
CPT/HCPCS: 80053; 81001; 83735; 84100; 85025; 87086; 93005; 96361; 96374; 99285; J1885; J7030

== ENCOUNTER 2018-05-01 12:19 | Emergency (ER) | payer OTHER ==
[2018-05-01 12:19] VITALS: BMI 24.0
[2018-05-01 12:24] VITALS: RESP 16; O2SAT 97
[2018-05-01] MEDS ORDERED: Sodium Chloride 0.9% 1,000 ML IV ONE (13:27)
[2018-05-01 13:44] LABS: SQUAMOUS EPITHIAL 2 /hpf (0-5); URINE BACTERIA RARE (<OCC); URINE BILIRUBIN NEGATIVE (NEGATIVE); URINE BLOOD 2+ (NEGATIVE); URINE CLARITY Hazy (Clear); URINE COLOR Straw (YELLOW); URINE GLUCOSE (UA) NORMAL (Normal); URINE LEUKOCYTE ESTERASE 2+ Leu/uL (Negative); URINE PROTEIN NEGATIVE (NEGATIVE); URINE UROBILINOGEN NORMAL mg/dL (0.2-1.0)
[2018-05-01] MEDS ORDERED: Sodium Chloride 0.9% 1,000 ML ONE (13:52)
[2018-05-01 13:55] LABS: BASO % 0.2 % (0.0-2.0); EOS % 0.4 % (0.0-4.0); LYMPH # 2.7 K/uL (1.0-4.3); LYMPH % 34.2 % (20.0-40.0); MEAN CORPUSCULAR HEMOGLOBIN 32.6 pg (27.0-31.0); MEAN CORPUSCULAR HGB CONC 33.9 g/dL (33.0-37.0); MEAN PLATELET VOLUME 7.6 fL (7.2-11.7); MONO # 0.8 K/uL (0.0-0.8); MONO % 9.7 % (0.0-10.0); NEUT # 4.4 K/uL (1.8-7.0); NEUT % 55.5 % (50.0-75.0); RBC 3.97 Mil/uL (3.80-5.20); RED CELL DISTRIBUTION WIDTH 12.9 % (11.5-14.5); WHITE BLOOD COUNT 7.9 K/uL (4.8-10.8)
[2018-05-01 14:04] LABS: MEAN CELL VOLUME 96.4 fL (81.0-99.0)
[2018-05-01 14:06] LABS: ALB/GLOB RATIO 1.1 (1.0-2.1); ALT/SGPT 23 U/L (9-52); AST/SGOT 23 U/L (14-36); BLOOD UREA NITROGEN 10 mg/dL (7-17); GFR NON-AFRICAN AMERICAN > 60; LIPASE 18 U/L (23-300)
--- NOTE | 2018-05-01 14:35 | C.PDOC ---
History Of Present Illness 62 y/o female presents to the ER complaining of diarrhea which has been present for the past 3 days. Patient states that she has some burning with urination. Patient reports that she feels dizzy. Denies having headache, fever, chills, CP, SOB, nausea, vomiting,abdominal pain, and hematuria. Time Seen by Provider: 05/01/18 13:20 Chief Complaint (Nursing): Dizziness/Lightheaded History Per: Patient History/Exam Limitations: no limitations Onset/Duration Of Symptoms: Days Current Symptoms Are (Timing): Still Present Severity: Moderate Past Medical History Reviewed: Historical Data, Nursing Documentation, Vital Signs Vital Signs: Last Vital Signs Temp 98 F 05/01/18 12:22 Pulse 83 05/01/18 12:22 Resp 16 05/01/18 12:22 BP 156/85 H 05/01/18 12:22 Pulse Ox 97 05/01/18 12:22 - Medical History PMH: Anemia (IRON DEFICIENCY), Asthma, Diverticulitis, Gall Bladder Disease, HTN, Hypercholesterolemia, Hyperlipidemia Denies: Chronic Kidney Disease Surgical History: Cholecystectomy - [facility] Procedures COLONOSCOPY (01/07/13) Family History: States: No Known Family Hx - Social History Hx Tobacco Use: No Hx Alcohol Use: No Hx Substance Use: No - Immunization History Hx Tetanus Toxoid Vaccination: Yes Hx Influenza Vaccination: Yes Hx Pneumococcal Vaccination: No Review Of Systems Except As Marked, All Systems Reviewed And Found Negative. Constitutional: Negative for: Fever, Chills Cardiovascular: Negative for: Chest Pain Respiratory: Negative for: Shortness of Breath Gastrointestinal: Positive for: Diarrhea. Negative for: Vomiting, Abdominal Pain Genitourinary: Positive for: Dysuria. Negative for: Hematuria Neurological: Positive for: Dizziness. Negative for: Headache Physical Exam - Physical Exam Appears: Non-toxic, No Acute Distress Skin: Normal Color, Warm, Dry Head: Atraumatic, Normacephalic Eye(s): bilateral: Normal Inspection Nose: Normal Oral Mucosa: Moist Neck: Supple Chest: Symmetrical Cardiovascular: Rhythm Regular Respiratory: Normal Breath Sounds, No Rales, No Rhonchi, No Wheezing Gastrointestinal/Abdominal: Soft, Tenderness (suprapubic tenderness), No Guarding, No Rebound Neurological/Psych: Oriented x3, Normal Speech ED Course And Treatment - Laboratory Results Result Diagrams: 05/01/18 13:49 05/01/18 13:49 Lab Interpretation: No Acute Changes O2 Sat by Pulse Oximetry: 97 (RA) Pulse Ox Interpretation: Normal Progress Note: Treated with IVF NSS and reglan IV. On re-evaluation abdomen soft non-tender. treated with macrobid PO Medical Decision Making Medical Decision Making: Plan: --Labs --UA --Macrobid PO --Reglan IV --IV Fluids Disposition Counseled Patient/Family Regarding: Studies Performed, Diagnosis, Need For Followup, Rx Given - Disposition Referrals: [facility] [Outside] [facility] [Outside] Disposition: HOME/ ROUTINE Disposition Time: 15:20 Condition: STABLE Additional Instructions: Follow up with clinic for further evaluation Return to ED if any increase symptoms Prescriptions: Nitrofurantoin Macrocrystals [Macrobid] 1 cap PO BID #14 cap Instructions: Urinary Tract Infection, Adult (DC) Forms: [employer] (Portuguese) Print Language: ROMANIAN - POA Present On Arrival: None - Clinical Impression Clinical Impression: Dizziness, UTI (urinary tract infection) - PA / PATIENT ACCOUNTS SPECIALIST / Resident Statement MD/DO has reviewed & agrees with the documentation as recorded. - Scribe Statement The provider has reviewed the documentation as recorded by the Trinidad Gallego Provider Attestation All medical record entries made by the Trinidad were at my direction and personally dictated by me. I have reviewed the chart and agree that the record accurately reflects my personal performance of the history, physical exam, medical decision making, and the department course for this patient. I have also personally directed, reviewed, and agree with the discharge instructions and disposition.
[2018-05-01 15:36] VITALS: BP 137/74; PULSE 84; TEMP 98.2
== END 2018-05-01 15:34 | disposition home or self-care (01) ==
LOC: C.ER 12:19
DX: R42 Dizziness and giddiness (principal); N39.0 Urinary tract infection, site not specified; I10 Essential (primary) hypertension; E78.00 Pure hypercholesterolemia, unspecified
CPT/HCPCS: 80053; 81001; 83690; 85025; 96360; 99285; J2765; J7030

== ENCOUNTER 2018-07-22 20:17 | Emergency (ER) | payer OTHER ==
[2018-07-22 20:18] VITALS: BMI 24.0
--- NOTE | 2018-07-22 21:16 | C.PDOC ---
History Of Present Illness 62 y/o female with a PMHx of asthma presents to the ED complaining of fever, chills, body aches, cough for the past few days. Patient also reports her chest hurts when she coughs. Otherwise she denies any SOB, wheezing, back pain, or other associated symptoms. No known sick contacts. No recent travel. Time Seen by Provider: 07/22/18 20:47 Chief Complaint (Nursing): Flu-like Symptoms History Per: Patient History/Exam Limitations: no limitations Onset/Duration Of Symptoms: Days Current Symptoms Are (Timing): Still Present Location Of Pain: Diffuse Myalgias Sick Contacts (Context): None Associated Symptoms: Fever, Cough Past Medical History Reviewed: Historical Data, Nursing Documentation, Vital Signs Vital Signs: Last Vital Signs Temp 101.7 F H 07/22/18 20:32 Pulse 90 07/22/18 20:32 Resp 18 07/22/18 20:32 BP 148/89 07/22/18 20:32 Pulse Ox 97 07/22/18 20:32 - Medical History PMH: Anemia (IRON DEFICIENCY), Asthma, Diverticulitis, Gall Bladder Disease, HTN, Hypercholesterolemia, Hyperlipidemia Denies: Chronic Kidney Disease Surgical History: Cholecystectomy - [facility] Procedures COLONOSCOPY (01/07/13) Family History: States: Unknown Family Hx - Social History Hx Tobacco Use: No Hx Alcohol Use: No Hx Substance Use: No - Immunization History Hx Tetanus Toxoid Vaccination: Yes Hx Influenza Vaccination: Yes Hx Pneumococcal Vaccination: No Review Of Systems Except As Marked, All Systems Reviewed And Found Negative. Constitutional: Positive for: Fever, Chills, Other (Body aches) Cardiovascular: Positive for: Chest Pain (with coughing) Respiratory: Positive for: Cough. Negative for: Shortness of Breath, Wheezing Gastrointestinal: Negative for: Nausea, Vomiting, Diarrhea Genitourinary: Negative for: Dysuria Musculoskeletal: Negative for: Back Pain Skin: Negative for: Rash Neurological: Negative for: Weakness, Numbness, Dizziness Physical Exam - Physical Exam Appears: Non-toxic, No Acute Distress Skin: Normal Color, Warm, Dry Head: Atraumatic, Normacephalic Eye(s): bilateral: Normal Inspection, PERRL, EOMI Ear(s): Bilateral: Normal (TMs clear) Oral Mucosa: Moist Tongue: Normal Appearing, No Swelling Lips: Normal Appearing, No Swelling Throat: Normal (Pharynx is clear), No Erythema, No Exudate Neck: Normal ROM, Supple Lymphatic: Normal Exam Chest: Symmetrical, No Tenderness Cardiovascular: Rhythm Regular, No Friction Rub, No Murmur Respiratory: Decreased Breath Sounds, No Accessory Muscle Use, No Rales, Rhonchi, No Wheezing, Other (No respiratory distress) Gastrointestinal/Abdominal: Soft, No Tenderness, No Distention, No Guarding Back: Normal Inspection, No CVA Tenderness Extremity: Normal ROM, No Swelling Extremity: Bilateral: Atraumatic, Normal Color And Temperature, Normal ROM Neurological/Psych: Oriented x3, Normal Speech, Normal Motor Gait: Steady ED Course And Treatment O2 Sat by Pulse Oximetry: 97 (RA) Pulse Ox Interpretation: Normal Medical Decision Making Medical Decision Making: Plan: * 650 mg PO Tylenol given * Flu swab sent Progress/Updates: Serology reviewed, flu negative. CXR shows ?infiltrate will treat for possible pneumonia Disposition - Disposition Referrals: [facility] [Outside] [facility] [Outside] Disposition: HOME/ ROUTINE Disposition Time: 22:27 Condition: GOOD Additional Instructions: Follow up with the medical doctor within 1-2 days. Return if worsened. Prescriptions: Azithromycin [Zithromax] 250 mg PO DAILY #4 tab Benzonatate 200 mg PO TID PRN #30 capsule PRN Reason: Cough predniSONE [Prednisone] 20 mg PO BID #10 tab Instructions: Pneumonia, Adult (DC) Forms: [employer] (Israeli) - Clinical Impression Clinical Impression: Pneumonia - PA / HOME SERVICE ADVISOR / Resident Statement MD/DO has reviewed & agrees with the documentation as recorded. - Scribe Statement The provider has reviewed the documentation as recorded by the Scribkellie Juarez All medical record entries made by the Scribe were at my direction and personally dictated by me. I have reviewed the chart and agree that the record accurately reflects my personal performance of the history, physical exam, medical decision making, and the department course for this patient. I have also personally directed, reviewed, and agree with the discharge instructions and disposition.
[2018-07-22 21:45] VITALS: BP 140/78; PULSE 88; RESP 20; TEMP 101.5
[2018-07-22 22:32] VITALS: O2SAT 97
--- NOTE | 2018-07-23 10:37 | RAD ---
Date of service: 07/22/2018 HISTORY: cough, fever COMPARISON: No prior. TECHNIQUE: Chest PA and lateral FINDINGS: LUNGS: Mild venous congestion. Bibasilar breast and nipple shadows. Diffuse increased interstitial lung markings. PLEURA: No significant pleural effusion identified. No pneumothorax apparent. CARDIOVASCULAR: No aortic atherosclerotic calcification present. Normal cardiac size. OSSEOUS STRUCTURES: No significant abnormalities. VISUALIZED UPPER ABDOMEN: Surgical clips in the upper abdomen. OTHER FINDINGS: None. IMPRESSION: Mild venous congestion. Bibasilar breast and nipple shadows. Diffuse increased interstitial lung markings.
== END 2018-07-22 22:42 | disposition home or self-care (01) ==
LOC: C.ER 20:17
DX: J18.9 Pneumonia, unspecified organism (principal); I10 Essential (primary) hypertension; E78.00 Pure hypercholesterolemia, unspecified

== ENCOUNTER 2018-08-25 16:35 | Emergency (ER) | payer OTHER ==
[2018-08-25 16:36] VITALS: BMI 24.0
[2018-08-25 16:42] VITALS: O2SAT 99
[2018-08-25] MEDS ORDERED: Sodium Chloride 0.9% 1,000 ML IV ONE (17:19)
[2018-08-25 17:38] LABS: BASO % 0.3 % (0.0-2.0); EOS % 0.4 % (0.0-4.0); LYMPH # 1.8 K/uL (1.0-4.3); LYMPH % 22.9 % (20.0-40.0); MEAN CELL VOLUME 95.1 fL (81.0-99.0); MEAN CORPUSCULAR HEMOGLOBIN 31.9 pg (27.0-31.0); MEAN CORPUSCULAR HGB CONC 33.5 g/dL (33.0-37.0); MEAN PLATELET VOLUME 7.4 fL (7.2-11.7); MONO # 0.6 K/uL (0.0-0.8); MONO % 7.5 % (0.0-10.0); NEUT # 5.3 K/uL (1.8-7.0); NEUT % 68.9 % (50.0-75.0); RBC 4.39 Mil/uL (3.80-5.20); RED CELL DISTRIBUTION WIDTH 12.4 % (11.5-14.5); WHITE BLOOD COUNT 7.7 K/uL (4.8-10.8)
[2018-08-25] MEDS ORDERED: Sodium Chloride 0.9% 1,000 ML ONE (17:38)
[2018-08-25 17:50] LABS: ALB/GLOB RATIO 1.3 (1.0-2.1); ALBUMIN 4.5 g/dL (3.5-5.0); ALT/SGPT 10 U/L (9-52); AST/SGOT 22 U/L (14-36); BLOOD UREA NITROGEN 11 mg/dL (7-17); CALCIUM 9.6 mg/dl (8.6-10.4); GFR NON-AFRICAN AMERICAN > 60; LIPASE 14 U/L (23-300)
[2018-08-25] MEDS ORDERED: Iodixanol 320 MG/ML 100 ML BOTTLE IV ONE (18:21)
[2018-08-25 19:07] LABS: SQUAMOUS EPITHIAL 2 /hpf (0-5); URINE BACTERIA RARE (<OCC)
[2018-08-25 19:14] LABS: URINE BILIRUBIN SMALL (NEGATIVE); URINE CLARITY HAZY (Clear); URINE COLOR YELLOW (YELLOW); URINE GLUCOSE (UA) NEGATIVE (Normal)
[2018-08-25 19:15] LABS: URINE BLOOD SMALL (NEGATIVE); URINE LEUKOCYTE ESTERASE NEG Leu/uL (Negative); URINE PROTEIN NEGATIVE (NEGATIVE); URINE UROBILINOGEN 0.2 mg/dL (0.2-1.0)
[2018-08-25 19:45] VITALS: BP 112/78; PULSE 82; RESP 18; TEMP 98
--- NOTE | 2018-08-25 20:40 | C.PDOC ---
History Of Present Illness 63 y/o female comes in to ED complaining of diffuse abdominal pain since last night, associated with 3 episodes of vomiting. Patient denies vomiting today. She also complains of mild nausea. Otherwise she denies fever, diarrhea, blood in stool, or hematuria. Patient reports of decreased PO intake today. Time Seen by Provider: 08/25/18 16:57 Chief Complaint (Nursing): Abdominal Pain History Per: Patient History/Exam Limitations: no limitations Onset/Duration Of Symptoms: Days Current Symptoms Are (Timing): Still Present Past Medical History Reviewed: Historical Data, Nursing Documentation, Vital Signs Vital Signs: Last Vital Signs Temp 98 F 08/25/18 19:43 Pulse 82 08/25/18 19:43 Resp 18 08/25/18 19:43 BP 112/78 08/25/18 19:43 Pulse Ox 99 08/25/18 19:43 - Medical History PMH: Anemia (IRON DEFICIENCY), Asthma, Diverticulitis, Gall Bladder Disease, HTN, Hypercholesterolemia, Hyperlipidemia Denies: Chronic Kidney Disease Surgical History: Cholecystectomy - [facility] COLONOSCOPY (01/07/13) Family History: States: No Known Family Hx - Social History Hx Tobacco Use: No Hx Alcohol Use: No Hx Substance Use: No - Immunization History Hx Tetanus Toxoid Vaccination: Yes Hx Influenza Vaccination: Yes Hx Pneumococcal Vaccination: No Review Of Systems Except As Marked, All Systems Reviewed And Found Negative. Constitutional: Negative for: Fever Gastrointestinal: Positive for: Nausea, Vomiting, Abdominal Pain. Negative for: Diarrhea, Hematochezia Genitourinary: Negative for: Hematuria Physical Exam - Physical Exam Appears: Non-toxic, No Acute Distress Skin: Warm, Dry Head: Atraumatic, Normacephalic Eye(s): bilateral: Normal Inspection Oral Mucosa: Moist Neck: Supple Cardiovascular: Rhythm Regular, No Murmur Respiratory: Normal Breath Sounds, No Rales, No Rhonchi, No Wheezing Gastrointestinal/Abdominal: Soft, Tenderness (mild suprapubic and epigastric tenderness), No Guarding, No Rebound Extremity: Bilateral: Atraumatic, Normal ROM Neurological/Psych: Oriented x3, Normal Speech ED Course And Treatment - Laboratory Results Result Diagrams: 08/25/18 17:32 08/25/18 17:32 Lab Results: Total Bilirubin 0.4 mg/dL (0.2-1.3) 08/25/18 17:32 AST 22 U/L (14-36) 08/25/18 17:32 ALT 10 U/L (9-52) 08/25/18 17:32 Alkaline Phosphatase 72 U/L (38-126) 08/25/18 17:32 Total Protein 8.1 g/dL (6.3-8.3) 08/25/18 17:32 Albumin 4.5 g/dL (3.5-5.0) 08/25/18 17:32 Globulin 3.6 gm/dL (2.2-3.9) 08/25/18 17:32 Albumin/Globulin Ratio 1.3 (1.0-2.1) 08/25/18 17:32 Lipase 14 U/L (23-300) L 08/25/18 17:32 Urine Color Yellow (YELLOW) 08/25/18 18:49 Urine Clarity Hazy (Clear) 08/25/18 18:49 Urine pH 6.0 (5.0-8.0) 08/25/18 18:49 Ur Specific [place] 1.030 (1.003-1.030) 08/25/18 18:49 Urine Protein Negative mg/dL (NEGATIVE) 08/25/18 18:49 Urine Glucose (UA) Negative mg/dL (Normal) 08/25/18 18:49 Urine Ketones Trace mg/dL (NEGATIVE) 08/25/18 18:49 Urine Blood Small (NEGATIVE) 08/25/18 18:49 Urine Nitrate Negative (NEGATIVE) 08/25/18 18:49 Urine Bilirubin Small (NEGATIVE) 08/25/18 18:49 Urine Urobilinogen 0.2 mg/dL (0.2-1.0) 08/25/18 18:49 Ur Leukocyte Esterase Neg Delisa/uL (Negative) 08/25/18 18:49 Urine WBC (Auto) 5 /hpf (0-5) 08/25/18 18:49 Urine RBC (Auto) 20 /hpf (0-3) H 08/25/18 18:49 Ur Squamous Epith Cells 2 /hpf (0-5) 08/25/18 18:49 Urine Bacteria Rare (<OCC) 08/25/18 18:49 ECG: Interpreted By Me, Viewed By Me ECG Rhythm: Sinus Rhythm Rate From EC O2 Sat by Pulse Oximetry: 99 (RA) Pulse Ox Interpretation: Normal - CT Scan/US Abd/Pel CT Other Rad Studies (CT/US): Read By Radiologist, Radiology Report Reviewed CT/US Interpretation: FINDINGS: LUNG BASES: The lung bases appear clear. No pleural effusions are seen. LIVER: Unremarkable. GALLBLADDER AND BILE DUCTS: The gallbladder has been surgically removed. PANCREAS: Unremarkable. SPLEEN: Unremarkable. ADRENAL GLANDS: Unremarkable. KIDNEYS, URETERS, AND BLADDER: The kidneys appear within normal limits. There is no hydronephrosis or hydroureter. No urinary calculi are seen. STOMACH AND BOWEL: There are a few distended mid jejunal loops of bowel. Mild colonic diverticulosis is present. No evidence of bowel obstruction. No evidence suggesting enteritis or colitis. APPENDIX: No evidence of acute appendicitis on CT examination. PERITONEUM: No free fluid. No free air. LYMPH NODES: No lymphadenopathy is evident. REPRODUCTIVE: Unremarkable as visualized. VASCULATURE: No evidence of abdominal aortic aneurysm. BONES: No aggressive appearing osseous lesion. No acute osseous pathology evident. IMPRESSION: Few distended mid jejunal loops of bowel. Mild colonic diverticulosis. . Electronically signed on Aug 25, 2018 8:04:31 PM EDT by: Anupama Ortega M.D., Certified by [facility], Diagnostic Radiology Medical Decision Making Medical Decision Making: Plan: --Abd/Pel CT --EKG --Labs --UA --Pepcid 20 mg IVP --IV fluids --Zofran 4 mg IVP Disposition - Disposition Referrals: Merced Kendrick MD [Medical Doctor] - Disposition: HOME/ ROUTINE Disposition Time: 20:00 Condition: GOOD Additional Instructions: PIYUSH SAMS, thank you for letting us take care of you today. The emergency medical care you received today was directed at your acute symptoms. If you were prescribed any medication, please fill it and take as directed. It may take several days for your symptoms to resolve. Return to the Emergency Department if your symptoms worsen, do not improve, or if you have any other problems. Please contact your doctor or call one of the physicians/clinics you have been referred to that are listed on the Patient Visit Information form that is included in your discharge packet. Bring any paperwork you were given at discharge with you along with any medications you are taking to your follow up visit. Our treatment cannot replace ongoing medical care by a primary care provider outside of the emergency department. Thank you for allowing the [facility] team to be part of your care today. Follow up with your primary care doctor in 2-3 days for re-evaluation and further management. Prescriptions: Famotidine [Pepcid] 20 mg PO BID #14 tab Instructions: Gastritis (DC) Forms: [employer] (American) - Clinical Impression Clinical Impression: Gastritis - Scribe Statement The provider has reviewed the documentation as recorded by the Steveibkellie Morrison Provider Attestation: All medical record entries made by the Steveibkellie were at my direction and personally dictated by me. I have reviewed the chart and agree that the record accurately reflects my personal performance of the history, physical exam, medical decision making, and the department course for this patient. I have also personally directed, reviewed, and agree with the discharge instructions and disposition.
--- NOTE | 2018-08-26 11:33 | CT ---
Date of service: 08/25/2018 PROCEDURE: CT Abdomen and Pelvis with contrast HISTORY: diffuse abdominal tenderness COMPARISON: CT of the abdomen and pelvis with contrast performed 09/09/16 TECHNIQUE: Contrast dose: 100 mL Visipaque 320 IV Radiation dose: Total exam DLP = 506.4 mGy-cm. This CT exam was performed using one or more of the following dose reduction techniques: Automated exposure control, adjustment of the mA and/or kV according to patient size, and/or use of iterative reconstruction technique. FINDINGS: LOWER THORAX: No visible consolidation, pleural effusion, or pneumothorax. Small hiatal hernia/distal esophageal wall thickening. LIVER: Unremarkable. GALLBLADDER AND BILE DUCTS: Cholecystectomy. PANCREAS: Unremarkable. SPLEEN: Unremarkable. ADRENALS: Unremarkable. KIDNEYS AND URETERS: The kidneys enhance symmetrically. No hydronephrosis or obstructing calculus identified. VASCULATURE: No aortic aneurysm. Mild scattered atherosclerotic calcifications. BOWEL: Stomach is nondistended. Lack of oral contrast limits evaluation for bowel pathology. Bowel loops appear within normal limits of caliber without evidence of obstruction. Diverticulosis without CT evidence of acute diverticulitis. APPENDIX: The appendix appears within normal limits of caliber. No secondary signs of acute appendicitis. PERITONEUM: No significant free fluid. No definite free air. LYMPH NODES: No bulky adenopathy identified. BLADDER: Unremarkable. REPRODUCTIVE: Uterus is present. BONES: Degenerative changes. OTHER FINDINGS: None. IMPRESSION: Diverticulosis without CT evidence of acute diverticulitis. Additional findings as above. Preliminary impression was provided by [employer].
--- NOTE | 2018-08-26 15:34 | CARD ---
APPROVED REPORT Date of service: 08/25/2018 EKG Measurement Heart [id number] <Conclusion> Normal sinus rhythm Septal infarct, age undetermined Abnormal ECG
== END 2018-08-25 20:28 | disposition home or self-care (01) ==
LOC: C.ER 16:35
DX: K29.70 Gastritis, unspecified, without bleeding (principal)
CPT/HCPCS: 74177; 80053; 81001; 83690; 85025; 87086; 93005; 96361; 96374; 96375; 99285; J2405; J7030; Q9967